=== PATIENT | female | born 1950 | race Caucasian/White ===

== ENCOUNTER 2023-05-19 12:29 | Outpatient (AMB) | payer MEDICARE, BC, SELFPAY ==
[2023-05-19 12:35] VITALS: BP 128/80; PULSE 55; O2SAT 98; BMI 25.0
--- NOTE | 2023-05-19 12:35 | A.OFFPC_ITS ---
Vital Signs 05/19/23 12:35 Height 5 ft 6 in Weight 155 lb BMI 25.0 BP 128/80 Blood Pressure Location Lt brachial Position Sitting Pulse 55 Pulse Source Pulse Oximeter Pulse Oximetry (%) 98 Oxygen Delivery Method Room Air Intake Visit Reasons: 6 month follow up Intake Note: Pt is here today for 6 months follow up. Allergies levofloxacin Allergy (Unknown, Verified 05/19/23 12:39) cramps in legs Medication List - Last Reconciled 05/19/23 by Vanesa Beasley MD albuterol sulfate 90 mcg/actuation 2 puffs PO Q6H PRN atenolol-chlorthalidone 50-25 mg 1 tab PO DAILY buspirone 15 mg PO TID clobetasol 0.05% grams topical QWEEK estradiol 0.01%(0.1mg/gram) vaginal fluticasone propionate 50 mcg/actuation 1 spray intranasal DAILY losartan 25 mg PO DAILY Tobacco use date assessed: 05/19/23 Fall risk assessment: No Falls in past year Last assessed Fall Risk: 05/19/23 Dental Screening Dental Screen Date: 05/19/23 Did you have a dental visit in the last 12 months?: Yes Did you have a dental problem in the last 6 months where you did not have access to dental care?: No Was dental information given to patient?: Patient has dentist HPI 6 month follow up HPI Details Pt presents for f/u HTN, CKD 3 and mild asthma stable on current medications. [facility] Medical History Annual physical exam Anxiety Atrophic vaginitis CKD (chronic kidney disease), stage III History of mammogram HTN (hypertension) Hyperglycemia Hyperlipidemia Osteopenia Overweight Vitamin B12 deficiency Surgical History H/O colonoscopy No pertinent past surgical history Family History Father No problems noted. Mother No problems noted. Social History Housing: House Alcohol intake: current Alcohol intake frequency: a few times a week Patient Tobacco Use Status: Former Tobacco user e-Cigarette/Vaping Use: Never Used service: No Current occupational status: retired Cognitive needs: No Hearing needs: No Vision needs: No Questionnaire Thrive Questionnaire Date Thrive assessed: 05/19/23 I am a: Patient What is your living situation today?: I have a steady place to live Within the past 12 months, did the food you bought not last and you didn't have the money to get more?: Never true Within the past 12 months, did you worry whether your food would run out before you got money to buy more?: Never true Do you have trouble paying for medicines?: No Do you have trouble getting transportation to medical appointments?: No Do you have trouble paying your heating and electricity bill?: No Do you have trouble taking care of your child, family member or friend?: No Do you have trouble with day-to-day activities such as bathing, preparing meals, shopping, managing finances, etc.?: No Are you currently unemployed and looking for a job?: No Are you interested in more education?: No Please select the resources that you would like help with: None Currently or been in a relationship where the following occur: no concerns reported AUDIT C Alcohol Use Questionnaire (AUDIT-C) 1. How often do you have a drink containing alcohol?: Monthly or less 2. How many drinks containing alcohol do you have on a typical day when you are drinking?: 1 or 2 3. How often do you have six or more drinks on one occasion?: Never Total Score: 1 MATTHEW-7 AMB Questionnaire MATTHEW-7 Date MATTHEW - 7 assessed: 05/19/23 Feeling nervous, anxious, or on edge: 0 = Not at all Not being able to stop or control worryin = Not at all Worrying too much about different things: 0 = Not at all Trouble relaxin = Not at all Being so restless that it is hard to sit still: 0 = Not at all Becoming easily annoyed or irritable: 0 = Not at all Feeling afraid as if something awful might happen: 0 = Not at all Total MATTHEW-7 score (0-4 normal; 5-9 mild; 10-14 moderate; 15-21 severe): 0 Source: Developed by Drs. Jay Tristan, Janis Inman, Samm Hayes and colleagues, with an educational jadiel from [employer]. Review of Systems Const All systems reviewed & are unremarkable except as noted in HPI and below Reports no additional complaints Eyes Reports no additional complaints ENT Reports no additional complaints Card Reports no additional complaints Resp Reports no additional complaints GI Reports no additional complaints Reports no additional complaints Physical exam (Primary Care) Vital Signs: Last Vital Signs Pulse 55 05/19/23 12:35 BP 128/80 05/19/23 12:35 Pulse Ox 98 05/19/23 12:35 Oxygen Delivery Method Room Air 05/19/23 12:35 BMI result Body Mass Index 25.0 Tobacco/Smoking Status: Tobacco use Status Tobacco use date assessed 05/19/23 05/19/23 12:42 Patient Tobacco Use Status Former Tobacco user 05/19/23 12:42 e-Cigarette/Vaping Use Never Used 05/19/23 12:36 Thrive Assessment: Date of Thrive Assessment Date Thrive assessed 05/19/23 05/19/23 12:42 Currently or been in a relationship where the following occur: no concerns reported Const General: no acute distress HENMT Head: Yes normal to inspection Face and sinus: Yes normal facial exam Throat: Yes posterior oropharynx normal Neck Neck: Yes supple Resp Effort & Inspection: normal respiratory effort Auscultation: clear to auscultation bilaterally Cardio Rhythm: regular rhythm Heart sounds: S1 normal heart sound present and S2 normal heart sound present GI Inspection: Yes normal to inspection Palpation (GI): Soft to palpation Assessment and Plan Assessment & Plan (1) Vitamin B 12 deficiency: Code(s): E53.8 - Deficiency of other specified B group vitamins Plan: Check vitamin B12 level (2) Hyperglycemia: Comment: A1C 5.8 12/02 Code(s): R73.9 - Hyperglycemia, unspecified Plan: Continue ADA diet regular exercise monitor A1c (3) Hyperlipidemia: Code(s): E78.5 - Hyperlipidemia, unspecified Plan: Continue low-cholesterol diet (4) CKD (chronic kidney disease), stage III: Comment: f/u by Dr. Rodriguez Code(s): N18.30 - Chronic kidney disease, stage 3 unspecified Plan: Continue current medications and monitor renal function (5) HTN (hypertension): Comment: BP goal < 130/80 Code(s): I10 - Essential (primary) hypertension Plan: Continue current medications Orders: Orders Vitamin B12 and Folate 6 Months E53.8 - Deficiency of other specified B group vitamins, E78.5 - Hyperlipidemia, unspecified, I10 - Essential (primary) hypertension, N18.30 - Chronic kidney disease, stage 3 unspecified, R73.9 - Hyperglycemia, unspecified Comprehensive [place]. Panel Fast 6 Months E53.8 - Deficiency of other specified B group vitamins, E78.5 - Hyperlipidemia, unspecified, I10 - Essential (primary) hypertension, N18.30 - Chronic kidney disease, stage 3 unspecified, R73.9 - Hyperglycemia, unspecified Hemoglobin A1c 6 Months E53.8 - Deficiency of other specified B group vitamins, E78.5 - Hyperlipidemia, unspecified, I10 - Essential (primary) hypertension, N18.30 - Chronic kidney disease, stage 3 unspecified, R73.9 - Hyperglycemia, unspecified Lipid Panel 6 Months E53.8 - Deficiency of other specified B group vitamins, E78.5 - Hyperlipidemia, unspecified, I10 - Essential (primary) hypertension, N18.30 - Chronic kidney disease, stage 3 unspecified, R73.9 - Hyperglycemia, unspecified Complete Blood Count Auto Diff 6 Months E53.8 - Deficiency of other specified B group vitamins, E78.5 - Hyperlipidemia, unspecified, I10 - Essential (primary) hypertension, N18.30 - Chronic kidney disease, stage 3 unspecified, R73.9 - Hyperglycemia, unspecified Coding Level of Care Code Est Pt Level 3 (72843) Diagnoses Vitamin B 12 deficiency E53.8 Hyperglycemia R73.9 Hyperlipidemia E78.5 CKD (chronic kidney disease), stage III N18.30 HTN (hypertension) I10
== END 2023-05-19 14:56 | disposition home or self-care (01) ==
PROVIDERS: PCP Internal Medicine; Visit Provider Internal Medicine
DX: I12.9 Hypertensive chronic kidney disease with stage 1 through stage 4 chronic kidney disease, or unspecified chronic kidney disease (principal); N18.30 Chronic kidney disease, stage 3 unspecified; E53.8 Deficiency of other specified B group vitamins; R73.9 Hyperglycemia, unspecified; E78.5 Hyperlipidemia, unspecified
CPT/HCPCS: 99213

== ENCOUNTER 2023-11-22 11:22 | Outpatient (AMB) | payer MEDICARE, BC, SELFPAY ==
[2023-11-22 11:44] VITALS: BP 128/80; PULSE 52; O2SAT 96; BMI 25.5
--- NOTE | 2023-11-22 11:44 | A.OFFVIS_ITS ---
Intake Vital Signs 11/22/23 11:44 Height 5 ft 6 in Weight 158 lb BMI 25.5 BP 128/80 Blood Pressure Location Lt brachial Position Sitting Pulse 52 Pulse Source Pulse Oximeter Pulse Oximetry (%) 96 Oxygen Delivery Method Room Air Intake Visit Reasons: [facility] G0439 Allergies levofloxacin Allergy (Unknown, Verified 11/22/23 11:54) cramps in legs Medication List - Last Reconciled 11/22/23 by Vanesa Beasley MD albuterol sulfate 90 mcg/actuation 2 puffs PO Q6H PRN atenolol-chlorthalidone 50-25 mg 1 tab PO DAILY buspirone 15 mg PO TID clobetasol 0.05% grams topical QWEEK estradiol 0.01%(0.1mg/gram) vaginal fluticasone propionate 50 mcg/actuation 1 spray intranasal DAILY losartan 25 mg PO DAILY HPI [facility] G0439 HPI Details Pt presents for annual.Initiated the conversation about Advanced Directives. Advanced Directives help? patients prepare for current and future decisions about their medical treatment? and place of care. Discussed with patient that it is a process where a patients? current condition and prognosis are reviewed, their wishes for information? regarding their illness are elicited, and likely medical dilemmas are presented? and options discussed. The form can be amended as needed, reviewed yearly and? make changes as needed IPPE/AWV ? year old presents? for her ? Annual? Wellness Visit, initial visit.? Medical / Social History Reviewed? Past Medical History ?Yes? . ? [place]? of Care / Care Team list updated ?Yes . ? Surgical/Hospitalization? History ?Yes . ? Current Medications? (including OTC and supplements) ?Yes . ? Family History ?Yes? . ? Tobacco? Control form ?Yes . ? AUDIT-C (Alcohol use) form? ?Yes . ? Illicit drug use in Social? History ?Yes . ? Current diagnosis of? depression? ?No ? Appropriate PHQ2/PHQ9? completed ?Yes . ? Data entered by ?Medical? Linen Clerk and reviewed by provider ? Fall Risk ? Fall? History? Have you had any falls with? injury in the past year? ?No . ? Have you had two or more? falls in the past year? ?No . ? Fall Risk Assessment: ?No? falls in the past year . ? HRA filled out by? the patient, reviewed by Provider and scanned. ? IPPE/AWV ? Balance? [place]? ?Yes . ? Tandem? walk ?Yes . ? Walk and? Turn ?Yes . ? Rise from? sit to stand ?Yes . ?Vision? Corrective? lens ?Yes ? Vision? screen ? Up-to-date, has an appointment [] for vision? screening and glaucoma screening ?Hearing? Whisper? test ?pass .? Initiated the conversation about Advanced Directives. Advanced Directives help? patients prepare for current and future decisions about their medical treatment? and place of care. Discussed with patient that it is a process where a patients? current condition and prognosis are reviewed, their wishes for information? regarding their illness are elicited, and likely medical dilemmas are presented? and options discussed. The form can be amended as needed, reviewed yearly and? make changes as needed Written? Plan?Completed. See Patient? Documents. [facility] Medical History Annual physical exam Anxiety Atrophic vaginitis CKD (chronic kidney disease), stage III History of mammogram HTN (hypertension) Hyperglycemia Hyperlipidemia Osteopenia Overweight Vitamin B12 deficiency Surgical History H/O colonoscopy No pertinent past surgical history Family History Father No problems noted. Mother No problems noted. Social History Housing: House Alcohol intake: current Alcohol intake frequency: a few times a week Patient Tobacco Use Status: Former Tobacco user e-Cigarette/Vaping Use: Never Used service: No Current occupational status: retired Cognitive needs: No Hearing needs: No Vision needs: No Questionnaire Medicare Wellness Checkup [age] What gender do you identify with?: female During the past 4 weeks, how much have you been bothered by emotional problems such as feeling anxious, depressed, irritable, sad or downhearted, and blue?: slightly During the past 4 weeks, has your physical & emotional health limited your social activities with family, friends, neighbors, or groups?: not at all During the past 4 weeks, how much bodily pain have you generally had?: mild pain During the past 4 weeks, was someone available to help you if you needed & wanted help?: yes, as much as I wanted During the past 4 weeks, what was the hardest physical activity you could do for at least 2 minutes?: heavy Can you get to places out of walking distance without help? (For eg., can you travel alone on buses, taxis or drive your car?): Yes Can you go shopping for groceries or clothes without someone's help?: Yes Can you prepare your own meals?: Yes Can you do your housework without help?: Yes Because of any health problems, do you need the help of another person with your personal care needs such as eating, bathing, dressing or getting around the house?: No Can you handle your own money without help?: Yes During the past 4 weeks, how would you rate your health in general?: very good During the past 4 weeks how have things been going for you?: very well; could hardly better Are you having difficulties driving your car?: no Do you always fasten your seat belt when you are in a car?: yes, usually During past 4 weeks, have you been bothered by the following: never: Falling or dizzy when standing up, Sexual problems?, Trouble eating well?, Teeth or denture problems?, Problems using the telephone? and Tiredness or fatigue? Have you fallen 2 or more times in the past year?: Yes Are you afraid of falling?: Yes Are you a smoker?: no During the past 4 weeks, how many drinks of wine, beer, or other alcoholic beverages did you have?: 2-5 drinks per week Do you exercise for about 20 minutes 3 or more times a week?: yes, some of the time Have you been given information to help with the following?: no: Hazards in your house that might hurt you? and no: Keeping track of your medications? How often do you have trouble taking medicines the way you have been told to take them?: I always take medicine as prescribed How confident are you that you can control & manage most of your health problems?: very confident What is your race?: White Mini Mental State Exam (MMSE) Orientation What is the (year) (season) (date) (day) (month)?: year, season, date, day and month Where are we (state) (county) (town or city) (hospital) (floor)?: state, county, town or city, hospital/clinic and floor Registration Name of 3 unrelated objects clearly and slowly, then ask patient to repeat all 3 of them. (1st repeat determines score. Make sure they can repeat all three): object 1, object 2 and object 3 Attention & Calculation (CHOOSE ONE) Spell WORLD backwards (DLROW): 5 letters Recall Ask patient to repeat the 3 items from question #3.: object 1, object 2 and object 3 Language Show patient a wristwatch & ask what it is. Repeat for pencil.: watch and pencil Ask the patient to repeat the phrase 'No ifs, ands, or buts' after you.: correct Ask the patient to 'take a piece of paper with their right hand' 'fold paper in half' 'place paper on floor': take paper in right hand, fold paper in half and place paper on floor Print the sentence 'CLOSE YOUR EYES' on a piece. If patient actually closes eyes then score.: followed written direction Give patient a blank piece of paper & ask to write a sentence. Score if it contains a noun & verb.: sentence contains subject and verb Score Score: 29 Activity of Daily Living Bathing - sponge bath, tub bath or shower: receives no assistance (gets in/out by self, if usual bathing means Dressing - getting clothes from closets & drawers, including inner/outer garments & fasteners.: gets clothes & gets completely dressed without help Toileting - going to the 'toilet room' for urine/bowel elimination & cleaning self/arranging clothes: goes to toilet room, cleans self, arranges clothes without help Transfer: moves in & out of bed and chair without help (may use support object) Continence: controls urination/bowel movements completely by self Feeding: feeds self without help Total Score: 0 Information obtained from: patient Using telephone: independent Traveling: independent Shopping: independent Preparing meals: independent Housework: independent Taking medicine: independent Managing money: independent PHQ-9 Over the last 2 weeks, how often have you been bothered by any of the following problems? 1. Little interest or pleasure in doing things: not at all 2. Feeling down, depressed, or hopeless: not at all 3. Trouble falling or staying asleep, or sleeping too much: not at all 4. Feeling tired or having little energy: not at all 5. Poor appetite or overeating: not at all 6. Feeling bad about yourself - or that you are a failure or have let yourself or your family down: not at all 7. Trouble concentrating on things, such as reading the newspaper or watching television: not at all 8. Moving or speaking so slowly that other people could have noticed. Or the opposite - being so fidgety or restless that you have been moving around a lot more than usual: not at all 9. Thoughts that you would be better off or of hurting yourself in some way: not at all Total score: 0 Depression Screening Interpretation: Negative Depression Screening Done: Yes Source: Developed by Drs. Jay Tristan, Janis Inman, Samm Hayes and colleagues, with an educational jadiel from [employer]. Review of Systems Const All systems reviewed & are unremarkable except as noted in HPI and below Reports no additional complaints Eyes Reports no additional complaints ENT Reports no additional complaints Card Reports no additional complaints Resp Reports no additional complaints GI Reports no additional complaints Reports no additional complaints Musc Reports no additional complaints Physical Exam Vital Signs: Last Vital Signs Pulse 52 11/22/23 11:44 BP 128/80 11/22/23 11:44 Pulse Ox 96 11/22/23 11:44 Oxygen Delivery Method Room Air 11/22/23 11:44 BMI result Body Mass Index 25.5 Const General: no acute distress HEENT Head: Yes normal to inspection Eyes General: appearance normal, both eyes and all related structures Neck Neck: Yes no lymphadenopathy and Yes supple Resp Effort & Inspection: normal respiratory effort Auscultation: clear to auscultation bilaterally Cardio Rhythm: regular rhythm Heart sounds: S1 normal heart sound present and S2 normal heart sound present GI Inspection: Yes normal to inspection Palpation (GI): Soft to palpation Percussion: Yes normal to percussion Auscultation: normal bowel sounds Extrem General: Yes no clubbing, cyanosis or edema Assessment & Plan Assessment & Plan (1) Hyperglycemia: Comment: A1C 5.8 12/02 Code(s): R73.9 - Hyperglycemia, unspecified Plan: A1c is 5.6, continue ADA diet regular exercise (2) Hyperlipidemia: Code(s): E78.5 - Hyperlipidemia, unspecified Plan: Continue low-cholesterol diet (3) CKD (chronic kidney disease), stage III: Comment: f/u by Dr. Rodriguez Code(s): N18.30 - Chronic kidney disease, stage 3 unspecified Plan: Monitor renal function avoid nephrotoxins follow-up with hand stonecutter in 6 months (4) HTN (hypertension): Comment: BP goal < 130/80 Code(s): I10 - Essential (primary) hypertension Plan: Continue current medications (5) Vitamin B 12 deficiency: Code(s): E53.8 - Deficiency of other specified B group vitamins Plan: Continue vitamin B12 supplement Orders: Orders Complete Blood Count Auto Diff 365 Days E53.8 - Deficiency of other specified B group vitamins, E78.5 - Hyperlipidemia, unspecified, I10 - Essential (primary) hypertension, N18.30 - Chronic kidney disease, stage 3 unspecified, R73.9 - Hyperglycemia, unspecified Hemoglobin A1c 365 Days E53.8 - Deficiency of other specified B group vitamins, E78.5 - Hyperlipidemia, unspecified, I10 - Essential (primary) hypertension, N18 .30 - Chronic kidney disease, stage 3 unspecified, R73.9 - Hyperglycemia, unspecified Microalbumin, Random (w Creat) 365 Days E53.8 - Deficiency of other specified B group vitamins, E78.5 - Hyperlipidemia, unspecified, I10 - Essential (primary) hypertension, N18.30 - Chronic kidney disease, stage 3 unspecified, R73.9 - Hyperglycemia, unspecified Comprehensive [place]. Panel Fast 365 Days E53.8 - Deficiency of other specified B group vitamins, E78.5 - Hyperlipidemia, unspecified, I10 - Essential (primary) hypertension, N18.30 - Chronic kidney disease, stage 3 unspecified, R73.9 - Hyperglycemia, unspecified Lipid Panel 365 Days E53.8 - Deficiency of other specified B group vitamins, E78.5 - Hyperlipidemia, unspecified, I10 - Essential (primary) hypertension, N18.30 - Chronic kidney disease, stage 3 unspecified, R73.9 - Hyperglycemia, unspecified Quality Reporting (2019) Depression/Bipolar (159/160/161/177) PHQ-9: Total score: 0 Coding Level of Care Code Medicare Subsequent (G0439) Diagnoses Hyperglycemia R73.9 Hyperlipidemia E78.5 CKD (chronic kidney disease), stage III N18.30 HTN (hypertension) I10 Vitamin B 12 deficiency E53.8 CPT Codes Advance Care Planning - Time spent: 1-15 minutes, not on file ([id number]) Advance Care Planning Advance Care Planning discussion: Exists, not on file Forms completed: Health Care Proxy Time spent: 1-15 minutes, not on file
== END 2023-11-22 13:55 | disposition home or self-care (01) ==
PROVIDERS: PCP Internal Medicine; Visit Provider Internal Medicine
DX: Z00.00 Encounter for general adult medical examination without abnormal findings (principal); I12.9 Hypertensive chronic kidney disease with stage 1 through stage 4 chronic kidney disease, or unspecified chronic kidney disease; N18.30 Chronic kidney disease, stage 3 unspecified; R73.9 Hyperglycemia, unspecified; E78.5 Hyperlipidemia, unspecified; E53.8 Deficiency of other specified B group vitamins
CPT/HCPCS: 1124F; G0439

== ENCOUNTER 2024-11-23 11:57 | Outpatient (AMB) | payer MEDICARE, BC, SELFPAY ==
[2024-11-23 12:11] VITALS: BP 158/90; PULSE 73; RESP 16; O2SAT 97; BMI 24.6
--- NOTE | 2024-11-23 12:11 | A.OFFPC_ITS ---
Vital Signs 11/23/24 12:11 Height 5 ft 6 in Weight 152 lb 4 oz BMI 24.6 BP 158/90 H Blood Pressure Location Rt brachial Position Sitting Respiration 16 Pulse 73 Pulse Source Pulse Oximeter Pulse Oximetry (%) 97 Oxygen Delivery Method Room Air Intake Visit Reasons: [facility] G0439 Allergies levofloxacin Allergy (Unknown, Verified 11/23/24 12:14) cramps in legs Medication List - Last Reconciled 11/23/24 by Vanesa Beasley MD albuterol sulfate 90 mcg/actuation 2 puffs PO Q6H PRN atenolol-chlorthalidone 50-25 mg 1 tab PO DAILY buspirone 1 1/2 tabl orally 2 times a day; clobetasol 0.05% grams topical QWEEK estradiol 0.01%(0.1mg/gram) vaginal fluticasone propionate 50 mcg/actuation 1 spray intranasal DAILY losartan 25 mg PO DAILY Tobacco use date assessed: 11/23/24 Fall risk assessment: No Falls in past year Last assessed Fall Risk: 11/23/24 Dental Screening Dental Screen Date: 11/23/24 Did you have a dental visit in the last 12 months?: Yes Did you have a dental problem in the last 6 months where you did not have access to dental care?: No Was dental information given to patient?: Patient has dentist HPI [facility] G0439 HPI Details Initiated the conversation about Advanced Directives. Advanced Directives help? patients prepare for current and future decisions about their medical treatment? and place of care. Discussed with patient that it is a process where a patients? current condition and prognosis are reviewed, their wishes for information? regarding their illness are elicited, and likely medical dilemmas are presented? and options discussed. The form can be amended as needed, reviewed yearly and? make changes as needed IPPE/AWV ? year old presents? for her ? Annual? Wellness Visit, initial visit.? Medical / Social History Reviewed? Past Medical History ?Yes? . ? [place]? of Care / Care Team list updated ?Yes . ? Surgical/Hospitalization? History ?Yes . ? Current Medications? (including OTC and supplements) ?Yes . ? Family History ?Yes? . ? Tobacco? Control form ?Yes . ? AUDIT-C (Alcohol use) form? ?Yes . ? Illicit drug use in Social? History ?Yes . ? Current diagnosis of? depression? ?No ? Appropriate PHQ2/PHQ9? completed ?Yes . ? Data entered by ?Medical? [employer] and reviewed by provider ? Fall Risk ? Fall? History? Have you had any falls with? injury in the past year? ?No . ? Have you had two or more? falls in the past year? ?No . ? Fall Risk Assessment: ?No? falls in the past year . ? HRA filled out by? the patient, reviewed by Provider and scanned. ? IPPE/AWV ? Balance? [place]? ?Yes . ? Tandem? walk ?Yes . ? Walk and? Turn ?Yes . ? Rise from? sit to stand ?Yes . ?Vision? Corrective? lens ?Yes ? Vision? screen ? Up-to-date, has an appointment [] for vision? screening and glaucoma screening ?Hearing? Whisper? test ?pass .? Initiated the conversation about Advanced Directives. Advanced Directives help? patients prepare for current and future decisions about their medical treatment? and place of care. Discussed with patient that it is a process where a patients? current condition and prognosis are reviewed, their wishes for information? regarding their illness are elicited, and likely medical dilemmas are presented? and options discussed. The form can be amended as needed, reviewed yearly and? make changes as needed Written? Plan?Completed. See Patient? Documents. [facility] Medical History (Updated 11/23/24 @ 15:19 by Vanesa Beasley MD) Anxiety Annual physical exam Osteopenia Vitamin B12 deficiency Hyperglycemia Hyperlipidemia History of mammogram CKD (chronic kidney disease), stage III Atrophic vaginitis Overweight HTN (hypertension) Surgical History H/O colonoscopy No pertinent past surgical history Family History Father No problems noted. Mother No problems noted. Social History Household Members Other:: , taking care of her ill , in wheelchair Housing: House Alcohol intake: current Alcohol intake frequency: a few times a week Patient Tobacco Use Status: Former Tobacco user e-Cigarette/Vaping Use: Never Used service: No Current occupational status: retired Cognitive needs: No Hearing needs: No Vision needs: No Questionnaire PHQ-9 Over the last 2 weeks, how often have you been bothered by any of the following problems? 1. Little interest or pleasure in doing things: not at all 2. Feeling down, depressed, or hopeless: several days 3. Trouble falling or staying asleep, or sleeping too much: not at all 4. Feeling tired or having little energy: not at all 5. Poor appetite or overeating: not at all 6. Feeling bad about yourself - or that you are a failure or have let yourself or your family down: not at all 7. Trouble concentrating on things, such as reading the newspaper or watching television: not at all 8. Moving or speaking so slowly that other people could have noticed. Or the opposite - being so fidgety or restless that you have been moving around a lot more than usual: not at all 9. Thoughts that you would be better off or of hurting yourself in some way: not at all Total score: 1 Depression Screening Interpretation: Negative Depression Screening Done: Yes 73862 - PHQ-9 Billing: Yes Source: Developed by Drs. Jay Tristan, Janis Inman, Samm Hayes and colleagues, with an educational jadiel from [employer]. Thrive Questionnaire Date Thrive assessed: 11/23/24 I am a: Patient What is your living situation today?: I have a steady place to live Within the past 12 months, did the food you bought not last and you didn't have the money to get more?: Never true Within the past 12 months, did you worry whether your food would run out before you got money to buy more?: Never true Do you have trouble paying for medicines?: No Do you have trouble getting transportation to medical appointments?: No Do you have trouble paying your heating and electricity bill?: No Do you have trouble taking care of your child, family member or friend?: No Do you have trouble with day-to-day activities such as bathing, preparing meals, shopping, managing finances, etc.?: No Are you currently unemployed and looking for a job?: Yes Are you interested in more education?: No Please select the resources that you would like help with: None Currently or been in a relationship where the following occur: No concerns r eported THRIVE Score: 0 AUDIT C Alcohol Use Questionnaire (AUDIT-C) 1. How often do you have a drink containing alcohol?: 2-3 times a week 2. How many drinks containing alcohol do you have on a typical day when you are drinking?: 1 or 2 3. How often do you have six or more drinks on one occasion?: Never Total Score: 3 Score Reviewed/Action Taken: Yes MATTHEW-7 AMB Questionnaire MATTHEW-7 Date MATTHEW - 7 assessed: 11/23/24 Feeling nervous, anxious, or on edge: 1 = Several days Not being able to stop or control worryin = Several days Worrying too much about different things: 1 = Several days Trouble relaxin = Several days Being so restless that it is hard to sit still: 1 = Several days Becoming easily annoyed or irritable: 0 = Not at all Feeling afraid as if something awful might happen: 1 = Several days Total MATTHEW-7 score (0-4 normal; 5-9 mild; 10-14 moderate; 15-21 severe): 6 Source: Developed by Drs. Jay Tristan, Janis Inman, Samm Hayes and colleagues, with an educational jadiel from [employer]. MATTHEW-7 Assessment Billing MATTHEW-7 Assessment Tool: MATTHEW-7 Assessment 50522 Review of Systems Const All systems reviewed & are unremarkable except as noted in HPI and below Reports no additional complaints Eyes Reports no additional complaints ENT Reports no additional complaints Card Reports no additional complaints Resp Reports no additional complaints GI Reports no additional complaints Reports no additional complaints Physical exam (Primary Care) Vital Signs: Last Vital Signs Pulse 73 11/23/24 12:11 Resp 16 11/23/24 12:11 BP 158/90 H 11/23/24 12:11 Pulse Ox 97 11/23/24 12:11 Oxygen Delivery Method Room Air 11/23/24 12:11 BMI result Body Mass Index 24.6 Tobacco/Smoking Status: Tobacco use Status Tobacco use date assessed 11/23/24 11/23/24 12:15 Patient Tobacco Use Status Former Tobacco user 11/23/24 12:50 e-Cigarette/Vaping Use Never Used 11/23/24 12:50 PHQ-9: PHQ-9 Score PHQ-9: Total score 1 11/23/24 15:19 Depression Screening Interpretation: Negative Thrive Assessment: Date of Thrive Assessment Date Thrive assessed 11/23/24 11/23/24 12:15 Currently or been in a relationship where the following occur: No concerns reported Const General: no acute distress HENMT Head: Yes normal to inspection General nose exam: Normal external nose present Face and sinus: Yes normal facial exam Mouth: Normal oral and palatal mucosa present Throat: Yes posterior oropharynx normal Eyes General: appearance normal, both eyes and all related structures Neck Neck: Yes no lymphadenopathy and Yes supple Resp Effort & Inspection: normal respiratory effort Auscultation: clear to auscultation bilaterally Cardio Rhythm: regular rhythm Heart sounds: S1 normal heart sound present and S2 normal heart sound present GI Inspection: Yes normal to inspection Palpation (GI): Soft to palpation Percussion: Yes normal to percussion Auscultation: normal bowel sounds Coding Diagnoses HTN (hypertension) I10 Annual physical exam Z00.00 CKD (chronic kidney disease), stage III N18.30 Anxiety F41.9 Additional Codes MATTHEW-7 Assessment Billing - MATTHEW-7 Assessment Tool: MATTHEW-7 Assessment 34220 ([id number]) PHQ-9 - 17132 - PHQ-9 Billing: Yes ([id number]) Assessment & Plan Assessment & Plan (1) HTN (hypertension): Comment: BP goal < 130/80 Code(s): I10 - Essential (primary) hypertension Category: Medical Plan: Blood pressure is elevated and losartan will be increased to 25 mg twice a day. Patient will continue atenolol with chlorthalidone, have basic metabolic panel checked in 1 week and will follow-up in 1 month (2) Annual physical exam: Code(s): Z00.00 - Encounter for general adult medical examination without abnormal findings Category: Medical Plan: Well-balanced diet regular physical activity discussed with the patient she is up-to-date with mammogram DEXA and colonoscopy (3) CKD (chronic kidney disease), stage III: Comment: f/u by Dr. 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 Patient will follow-up in 1 month Orders: Orders Basic Metabolic Panel 1 Week I10 - Essential (primary) hypertension Medications: Changed From losartan 25 mg PO DAILY 180 tabs 3RF To losartan 25 mg PO BID 180 tabs 3RF From buspirone 15 mg PO TID 270 tabs 3RF To buspirone 1 1/2 tabl orally 2 times a day; 270 tabs 3RF Refilled losartan 25 mg PO DAILY 180 tabs 3RF
--- OUTSIDE RECORDS SUMMARY | 2024-11-23 12:21 | XMS_ITS ---
Author Organization [employer] [facility] Address [address] [facility] [place] [address] Care Team Providers Care Demand Inspector Name Role Phone Vanesa Beasley MD Primary Care Provider Usha Gamboa Unavailable [phone] Allergies Allergen (clinical drug ingredient) Drug/Non Drug Allergy documented on EMR Reaction Allergy Type Onset Date Status citalopram Citalopram Hydrobromide Leg Cramps Drug Allergy Active REASON FOR VISIT LR MEDICARE PE, Annual COOK SHIP Physical 60-85+ Medications Medication SIG (Take, Route, Frequency, Duration) Notes Start Date End Date Status Clobetasol Propionate 0.05 % APPLY TO AFFECTED AREA ONCE A WEEK TOPICALLY for 90 PLS ADVISE PAT TO APPLY TWICE A WEEK IF LESIONS HAVE WORSENED. THANK YOU. Active Estradiol 0.1 MG/GM APPLY 1 GRAM VAGINALLY 2 TIMES PER WEEK for 90 Active Atenolol-Chlorthalidon e 50-25 MG TAKE 1 TABLET BY MOUTH EVERY DAY Oral for 90 Active busPIRone HCl 15 MG 1 tablet Orally Once a day Active Losartan Potassium 25 MG TAKE 1 TABLET BY MOUTH EVERY DAY Oral for 90 Active Peggy Seasonal Active Albuterol Sulfate HFA 108 (90 Base) MCG/ACT INHALE 2 PUFFS BY MOUTH EVERY 6 HOURS NEEDED Inhalation for 16 Active Estradiol Vaginal Cream 0.01% 1 Gram to the affected area Vaginal/Vulva Twice a week for 90 Days 10/26/2022 Active Multivitamins 1 ORAL daily for -3 Darci-MJ 05/12/2012 Active Calcium ORAL for -3 Darci-MJ 08/07/2011 Active Aspirin EC 81MG 1 ORAL daily for -3 Darci-MJ 08/07/2011 Active Social History Tobacco Use: Social History Observation Description Date Details (start date - stop date) Never Smoker NA - NA Tobacco Use/Smoking Question Answer Notes Are you a nonsmoker Alcohol Screen (Audit-C) Question Answer Notes Did you have a drink contain ing alcohol in the past year? Yes How often did you have a dri nk containing alcohol in the past year? 4 or more times a week (4 points) How many drinks did you have on a typical day when you were drinking in the past year? 1 or 2 drinks (0 point) Points 4 Interpretation Positive Sexual History Question Answer Notes Had sex in the past 12 months (vaginal, oral, or anal)? Yes with Men only Prevention strategies discussed: Other Vital Signs Temperature 96.8 degrees Fahrenheit 12/14/19 24 Blood pressure systolic 140 mm Hg 12/14/19 24 Blood pressure diastolic 88 mm Hg 024 Height 64 in 12/14/2023 Weight 158 lbs 12/14/2023 BMI 27.12 kg/m2 12/14/2023 Encounters Encounter Location Date Provider Diagnosis [address] [address] 12/14/2023 Usha Alexandra Encounter for gynecological examination (general) (routine) without abnormal findings Z01.419 ; Encounter for screening mammogram for malignant neoplasm of breast Z12.31 ; Other specified disorders of bone density and structure, multiple sites M85.89 ; Lichen sclerosus et atrophicus L90.0 ; Atrophy of vulva N90.5 and Postmenopausal atrophic vaginitis N95.2 Assessments Encounter Date Diagnosis (ICD Code) Assessment Notes Treatment Notes Treatment Clinical Notes Section Notes 12/14/2023 Encounter for gynecological examination (general) (routine) without abnormal findings (ICD-10 - Z01.419) NO MORE PAP TESTS. 12/14/2023 Encounter for screening mammogram for malignant neoplasm of breast (ICD-10 - Z12.31) REGULAR MAMMOGRAMS AND SBE'S WERE RECOMMENDED. 12/14/2023 Other specified disorders of bone density and structure, multiple sites (ICD-10 - M85.89) DISCUSSED HER LAST BMD AND OSTEOPENIA AND ITS IMPACT ON HER HEALTH. ADEQUATE CALCIUM AND VIT D. WEIGHT BEARING EXERCISES. REPEAT BONE DENSITY WAS ORDERED. 12/14/2023 Lichen sclerosus et atrophicus (ICD-10 - L90.0) DISCUSSED FINDINGS AND CONGRATULATED PAT FOR HER DILIGENCE. CONTINUE ONCE WEEKLY APPLICATION OF MEDICATION. 12/14/2023 Atrophy of vulva (ICD-10 - N90.5) CONTINUE APPLYING ESTRADIOL CREAM ALONG VULVA. CALL FOR REFILLS. 12/14/2023 Postmenopausal atrophic vaginitis (ICD-10 - N95.2) CONTINUE APPLYING ESTRADIOL CREAM INTRAVAGINALLY. CALL FOR REFILLS. Plan Of Treatment Treatment Notes Assessment Notes Encounter for gynecological examination (general) (routine) without abnormal findings NO MORE PAP TESTS. Encounter for screening mamm ogram for malignant neoplasm of breast REGULAR MAMMOGRAMS AND SBE'S WERE RECOMMENDED. Other specified disorders of bone density and structure, multiple sites DISCUSSED HER LAST BMD AND OSTEOPENIA AND ITS IMPACT ON HER HEALTH. ADEQUATE CALCIUM AND VIT D. WEIGHT BEARING EXERCISES. REPEAT BONE DENSITY WAS ORDERED. Lichen sclerosus et atrophicus DISCUSSED FINDINGS AND CONGRATULATED PAT FOR HER DILIGENCE. CONTINUE ONCE WEEKLY APPLICATION OF MEDICATION. Atrophy of vulva CONTINUE APPLYING ESTRADIOL CREAM ALONG VULVA. CALL FOR REFILLS. Postmenopausal atrophic vaginitis CONTINUE APPLYING ESTRADIOL CREAM INTRAVAGINALLY. CALL FOR REFILLS. Pending Test Test Name Order Date MAMMOGRAM, SCREENING 12/14/2023 BONE DENSITY 12/14/2023 MM Digital Mammo Screening 12/14/2023 Next Appt Details Follow Up: 1 Year, Reason: Provider Name:Usha pastor, 12/20/2024 11:00:00 AM, [address] [place] [address], [facility] [address], [place], [address], Progress Notes * IZZY OBREGONOB:1950 (73 yo F)Acc No.[id number]:12/14/2023 PROGRESS NOTES Patient:?CESIA OBREGONRA Appointment Provider:?Usha pastor M.D. :1950???Age:73 Y???Sex:Female D ate:12/14/2023 Address:[address] [place], [place] [id number] Pcp:Vanesa Beasley MD Subjective: * Chief Complaints: * ???LR MEDICARE PEAnnual COOK SHIP Physical 60-85+ * HPI: ???New/Follow-up Patient Consult:? PAT ENTERED MENOPAUSE IN 2000. SHE USES ESTRADIOL CREAM FOR ATROPHIC VAGINITIS AND ATROPHIC VULVA. ?VULVAR BIOPSY DONE IN 2018 SHOWED LICHEN SCLEROSUS. SHE RESPONDED WELL TO CLOBETASOL 0.05% OINTMENT AND IS ON A MAINTENANCE DOSE, ONCE WEEKLY APPLICATION. ?HER LAST MAMMOGRAM DONE IN NOV 2023 SHOWED BREASTS ARE NOT DENSE AND WAS NORMAL. ?HER LAST PAP TEST IN 2018 WAS NEGATIVE AND HPV NEGATIVE. SHE HAS NO HX OF ABNORMAL PAP TESTS. ?HER LAST BMD IN 2021 SHOWED THE LOWEST T-SCORE TO BE -1.9 AT THE FEMORAL NECK. FRAX=12%/2.5%. ?SHE HAD A COLONOSCOPY DONE IN 2018. ?MODERNA X 4. ???Annual:? Patient presents for annual exam, ages 60-85, postmenopausal. ?General Health Maintenance:?Current breast complaints:?no breast pain, mass, discharge, or skin changes ?Urinary problems:?patient reports no urinary health problems or bowel health problems ?Calcium intake:?takes adequate calcium via diet and supplementation ?Significant COOK SHIP problems:?no significant nut culler symptoms or problems * ROS:?general:?no?chest pain.?no?palpitations.?no?headache.?no?cough.?no?shortness of breath.?no?fever.?no?unexplained weight loss.?no?nausea/vomiting.?no?change in bowel movements.?no blood in stool.?no?genitourinary complaints.?no?skin complaints.? * Medical History:? * Clinic Supervisor History:?/ Para?2/2.?Sexual activity?currently sexually active.?Last Pap Smear:?07/10/19 NIL, NEG HRHPV, 05/12/13, neg.?Mammogram:?11/18/23 < 50% density, 08/04/22 < 50% density, 04/04/21 < 50% density, 11/21/19 < 50% density, 2018, 01/11/17 < 50% density, 09/12/15 < 50% density, 07/13/14, < 50% density.?LMP and menses?[place].? Control:?None.?Colonoscopy?2019.?Bone Density:?08/04/22, 07/31/19, 09/12/15 with PCP, 04/20/12.? * OB History:?Total pregnancies?2.?Total living children?2.?NVD?2.? * Surgical History:?Tonsillect reece Umbilical Hernia Colonoscopy Vulvar Biopsy - Lichen Sclerosus 07/11/19 * Hospitalization/Major Diagno stic Procedure:?2 Vaginal Deliveries See Surgical Hx * Family History:?Mother: dece ased 80 yrs, diagnosed with Unspecified cerebral artery occlusion with cerebral infarction.?Father: 83 yrs, Coronary Artery Disease.? * Social History:?Tobacco Use:?Tobacco Use/Smoking?Are you a?nonsmoker ???Sexual History:?Sexual History?Had sex in the past 12 months (vaginal, oral, or anal)??Yes ?with?Men only ?Prevention strategies discussed:?Other ?Details of Sexual History?Are you sexually active??Yes ???Drugs/Alcohol:?Drugs?Have you used drugs other than those for medical reasons in the past 12 months??No ?Alcohol Screen (Audit-C)?Did you have a drink containing alcohol in the past year??Yes ?How often did you have a drink containing alcohol in the past year??4 or more times a week (4 points) ?How many drinks did you have on a typical day when you were drinking in the past year??1 or 2 drinks (0 point) ?Points?4 ?Interpretation?Positive ???Miscellaneous:?Children: yes, 2. ?no Domestic violence. ?Exercise: yes, walking. ?Home smoke detector use: yes. ?Living with: spouse. ?Marital status: . ?Natural support system: yes. 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 ?no Sexual abuse. ?Sexually active: yes, monogamous relationship. ?no Verbal abuse. * Medications:?TakingbusPIRone HCl 15 MG Tablet 1 tablet Orally Once a dayAtenolol-Chlorthalidone 50-25 MG Tablet TAKE 1 TABLET BY MOUTH EVERY DAY Oral Losartan Potassium 25 MG Tablet TAKE 1 TABLET BY MOUTH EVERY DAY Oral Aspirin EC 81MG 30 1 ORAL daily, Notes: Darci-MJCalcium ORAL , Notes: Darci-MJMultivitamins 30 1 ORAL daily, Notes: Darci-MJAlbuterol Sulfate HFA 108 (90 Base) MCG/ACT Aerosol Solution INHALE 2 PUFFS BY MOUTH EVERY 6 HOURS NEEDED Inhalation Peggy , Notes: SeasonalEstradiol Vaginal Cream 0.01% Cream 1 Gram to the affected area Vaginal/Vulva Twice a weekClobetasol Propionate 0.05 % Ointment APPLY TO AFFECTED AREA ONCE A WEEK TOPICALLY , Notes: PLS ADVISE PAT TO APPLY TWICE A WEEK IF LESIONS HAVE WORSENED. THANK YOU.Estradiol 0.1 MG/GM Cream APPLY 1 GRAM VAGINALLY 2 TIMES PER WEEK Medication List reviewed and reconciled with the patientTaking busPIRone HCl 15 MG Tablet 1 tablet Orally Once a dayTaking Atenolol-Chlorthalidone 50-25 MG Tablet TAKE 1 TABLET BY MOUTH EVERY DAY Oral Taking Losartan Potassium 25 MG Tablet TAKE 1 TABLET BY MOUTH EVERY DAY Oral Taking Aspirin EC 81MG 30 1 ORAL daily, Notes: Darci- MJTaking Calcium ORAL , Notes: Darci-MJTaking Multivitamins 30 1 ORAL daily, Notes: Darci- MJTaking Albuterol Sulfate HFA 108 (90 Base) MCG/ACT Aerosol Solution INHALE 2 PUFFS BY MOUTH EVERY 6 HOURS NEEDED Inhalation Taking Peggy , Notes: SeasonalTaking Estradiol Vaginal Cream 0.01% Cream 1 Gram to the affected area Vaginal/Vulva Twice a weekTaking Clobetasol Propionate 0.05 % Ointment APPLY TO AFFECTED AREA ONCE A WEEK TOPICALLY , Notes: PLS ADVISE PAT TO APPLY TWICE A WEEK IF LESIONS HAVE WORSENED. THANK YOU.Taking Estradiol 0.1 MG/GM Cream APPLY 1 GRAM VAGINALLY 2 TIMES PER WEEK Medication List reviewed and reconciled with the patient * Allergies:?Citalopram Hydrob romide: Leg Cramps - Allergyno[Allergies Verified] Objective: * Vitals:?Ht: 64 in, Wt: 158 l bs, BMI:27.12 Index, BP: 140/88 mm Hg, Temp: 96.8 F. * Examination: ???General Exam: ?CONSTITUTIONAL:?NECK/THYROID:?RESPIRATORY:?Auscultation: clear to auscultation bilaterally, Respiratory Effort: normal.?CARDIOVASCULAR:?Auscultation: regular rate and rhythm.?BREAST, Right:?BREAST, Left:?GASTROINTESTINAL:?MUSCULOSKELETAL:?SKIN:?NEURO/PSYCH:?Genitourinary: ?EXTERNAL GENITALIA:?VAGINA:?BLADDER:?URETHRA:?CERVIX:?UTERUS:?ADNEXA:?ANUS AND PERINEUM:? Assessment: * Assessment: 1.?Encounter for gynecologic al examination (general) (routine) without abnormal findings - Z01.419?2.?Encounter for screening mammogram for malignant neoplasm of breast - Z12.31?3.?Other specified disorders of bone density and structure, multiple sites - M85.89?4.?Lichen sclerosus et atrophicus - L90.0?5.?Atrophy of vulva - N90.5?6.?Postmenopausal atrophic vaginitis - N95.2? Plan: * Treatment: 2.?Encounter for screening m ammogram for malignant neoplasm of breast?Imaging: MM Digital Mammo Screening Notes: REGULAR MAMMOGRAMS AND SBE'S WERE RECOMMENDED.?? 3.?Other specified disorders of bone density and structure, multiple sites?Imaging: BONE DENSITY Notes: DISCUSSED HER LAST BMD AND OSTEOPENIA AND ITS IMPACT ON HER HEALTH. ADEQUATE CALCIUM AND VIT D. WEIGHT BEARING EXERCISES. REPEAT BONE DENSITY WAS ORDERED.??4.?Lichen sclerosus et atrophicus? Notes: DISCUSSED FINDINGS AND CONGRATULATED PAT FOR HER DILIGENCE. CONTINUE ONCE WEEKLY APPLICATION OF MEDICATION.??5.?Atrophy of vulva? Notes: CONTINUE APPLYING ESTRADIOL CREAM ALONG VULVA. CALL FOR REFILLS.??6.?Postmenopausal atrophic vaginitis? Notes: CONTINUE APPLYING ESTRADIOL CREAM INTRAVAGINALLY. CALL FOR REFILLS.?? * Imaging:? * ?Imaging: MAMMOGRAM, SCR EENING * Procedure Codes:? * Preventive Medicine:? ??YOUR PREVENTIVE WELLNESS PLAN:?Osteoporosis prevention?Calcium, D, strength training.?Breast Cancer Screening (Mammogram):?annually.?Cervical Cancer Screening (Pap Smear):?q 3 years with HPV screen.?Colorectal Cancer Screening:?q 10 years.? * Follow Up:?1 Year * Images: Billing Information: * Visit Code:? [id number] Preventive Care Est Pt. Age 65 and over. * Procedure Codes:? * Sign off status: Completed true * Appointment Provider:?Usha Alexandra M.D. Date:?12/14/2023 Generated for Loreto rees/Jenny/Karlitting on:?11/23/2024 12:21 PM EST History and Physical Notes * HPI (History of Present Illness) Category Sub-Category Detail Notes Category Not es New/Follow-up Patient Consult PAT ENTERED MENOPAUSE IN 2000. SHE USES ESTRADIOL CREAM FOR ATROPHIC VAGINITIS AND ATROPHIC VULVA. VULVAR BIOPSY DONE IN 2019 SHOWED LICHEN SCLEROSUS. SHE RESPONDED WELL TO CLOBETASOL 0.05% OINTMENT AND IS ON A MAINTENANCE DOSE, ONCE WEEKLY APPLICATION. HER LAST MAMMOGRAM DONE IN NOV 2023 SHOWED BREASTS ARE NOT DENSE AND WAS NORMAL. HER LAST PAP TEST IN 2019 WAS NEGATIVE AND HPV NEGATIVE. SHE HAS NO HX OF ABNORMAL PAP TESTS. HER LAST BMD IN 2021 SHOWED THE LOWEST T-SCORE TO BE -1.9 AT THE FEMORAL NECK. FRAX=12%/2.5%. SHE HAD A COLONOSCOPY DONE IN 2019. MODERNA X 4. Annual General Health Maintenance: Current breast complaints:: no breast pain, mass, discharge, or skin changes Urinary problems:: patient r eports no urinary health problems or bowel health problems Calcium intake:: takes adequ ate calcium via diet and supplementation Significant COOK SHIP problems:: n o significant nut culler symptoms or problems Examination Category Sub-Category Detail Notes Category Not es General Exam CONSTITUTIONAL: General Appearan ce:: alert, in no acute distress, normal, well nourished NECK/THYROID: Thyroid:: normal size and shape Inspection/Palpation:: normal RESPIRATORY: Auscultation: clear to auscultation bilaterally, Respiratory Effort: normal CARDIOVASCULAR: Auscultation: regula r rate and rhythm GASTROINTESTINAL: Hernias:: no hernias present, no inguinal adenopathy Liver and Spleen:: normal Abdomen:: no masses, nontender, nondiste nded MUSCULOSKELETAL: Inspection/Palpation:: no clubb ing, cyanosis, or edema SKIN: Skin:: normal NEURO/PSYCH: Mood/Affect:: normal Orientation:: time , place, person BREAST, Right: Inspection/Palpation :: no discharge, no masses present, no nipple retraction, no skin changes, no skin dimpling, no tenderness, no lymphadenopathy, no axillary mass, no axillary tenderness BREAST, Left: Inspection/Palpation :: no discharge, no masses present, no nipple retraction, no skin changes, no skin dimpling, no tenderness, no lymphadenopathy, no axillary mass, no axillary tenderness Genitourinary EXTERNAL GENITALIA: External Gen sridhar:: normal, no lesions no recurrence of lichen sclerosus VAGINA: Vagina:: normal appearance, no a bnormal discharge, no lesions BLADDER: Bladder:: no mass, nontender URETHRA: Urethra:: no erythema or lesions present CERVIX: Cervix:: no lesions, nontender UTERUS: Uterus:: nontender, normal conto ur, normal mobility, normal size ADNEXA: Adnexa:: no masses, no tendernes s ANUS AND PERINEUM: Anus/Perineum:: visually norm al
--- OUTSIDE RECORDS SUMMARY | 2024-11-23 12:21 | XMS_ITS | Clinical Summary ---
Author Organization [facility] Address [address] [address] Phone Care Team Providers Care Excavator Operator Name Role Phone Vanesa Beasley MD Primary Care Provider [phone] Allergies Active Allergy Reactions Criticality Noted Date Comments Citalopram 11/06/2021 Levofloxacin Other (see comments) 11/06/2021 Medications albuterol HFA (PROVENTIL HFA;VENTOLIN HFA) 108 (90 Base) MCG/ACT inhaler albuterol sulfate HFA 90 mcg/actuation aerosol inhaler Active aspirin (ST CAMELIA) 81 MG EC tablet Take 1 tablet by mouth 1 (one) time each day Active atenolol-chlort halidone (TENORETIC) 50-25 MG per tablet Take 0.5 tablets by mouth 1 (one) time each day Active busPIRone (BUSPAR) 7.5 MG tablet Take 7.5 mg by mouth at bed time Active calcium carbonate-vitam in D 600-200 MG-UNIT per tablet Take 1 tablet by mouth 1 (one) time each day Active clobetasol (TEMOVATE) 0.05 % cream Active Estradiol 10 MCG tablet Insert 1 tablet into the vagina 2 (two) times a week Active fluticasone (FLONASE) 50 MCG/ACT nasal spray Administer 2 sprays into each nostril 1 (one) time each day 5 Active losartan (COZAAR) 25 MG tablet Take 1 tablet by mouth 1 (one) time each day Active Active Problems Problem Noted Date Diagnosed Date Stage 3a chronic kidney disease 08/09/2024 Acute nontraumatic kidney injury 11/06/2021 Hypertensive disorder 11/06/2021 Hematuria syndrome 11/06/2021 Resolved Problems Problem Noted Date Diagnosed Date Resolved Date Vascular insufficiency 07/03/202207/03 Swollen ankle region 07/03/2022 022 Chronic kidney disease stage 2 11/06/2021 08/09/2024 Immunizations Name Administration Dates Next Due Influenza Split High Dose Preservative Free IM 1 Pneumococcal Conjugate 13-Valent 07/29/2015 Family History Medical History Relation Comments Gout Mother Hypertension Mother Stroke Mother Relation Status Comments Father Mother Social History Tobacco Use Types Packs/Day Years Used Date Smoking Tobacco: Former Smokeless Tobacco: Never Comments:Smoking History Inf o:Every day Alcohol Use Standard Drinks/Week Comments Yes 0 (1 standard drink = 0.6 oz pure alcohol) Alcoholic Drinks/day: 1-2 drinks per day Comments Unknown Sex and Gender Information Value Date Recorded Sex Assigned at Not on file Legal Sex Female 4:45 PM EST Gender Identity Not on file Sexual Orientation Not on file Last Filed Vital Signs Vital Sign Reading Time Taken Comments Blood Pressure 152/80 08/09/2024 1:05 PM EDT Pulse 73 08/09/2024 1:05 PM EDT Temperature - - Respiratory Rate - - Oxygen Saturation 98% 08/09/2024 1:05 PM EDT Inhaled Oxygen Concentration - - Weight 71.2 kg (157 lb) 08/09/2024 1:05 PM EDT Height 166.4 cm (5' 5.5 ) 08/09/2023 3:42 PM EDT Body Mass Index 25.73 08/09/2023 3:42 PM EDT Plan of Treatment Upcoming Encounters Date Type Department Care Team (Late st Contact Info) Description 02/06/2025 1:15 PM EDT Office Visit [facility] [address] [address] Lucia Gzt ARNP [address] [address] Health Maintenance Due Date Last Done Comments Breast Cancer Screening 1950 Colorectal Cancer Screening: Annual FOBT 1999 Colorectal Cancer Screening: Colonoscopy 1999 Colorectal Cancer Screening: Sigmoidoscopy 1999 Pneumococcal Vaccine: 65+ Ye ars (2 of 2 - PPSV23 or PCV20) 09/23/2015 07/29/2015 Influenza Vaccine (#1) 2024 07/25/2018 Hepatitis B Vaccine Aged Out No longe r eligible based on patient's age to complete this topic Insurance MEDICARE [facility] MEDICARE [facility] Care Teams Excavator Operator Relationship Specialty Start Date End Date Vanesa Beasley MD [address] [place] [address] PCP - General 10/21/20
--- OUTSIDE RECORDS SUMMARY | 2024-11-23 12:21 | XMS_ITS ---
Author Organization [facility] Address [address] [place] [address] Care Team Providers Care At Risk Specialist Name Role Phone Ramos BOSS, Vanesa Primary Care Provider Usha Gamboa Unavailable [phone] Allergies Allergen (clinical drug ingredient) Drug/Non Drug Allergy documented on EMR Reaction Allergy Type Onset Date Status citalopram Citalopram Hydrobromide Leg Cramps Drug Allergy Active REASON FOR VISIT LR MEDICARE PE Encounters Encounter Location Date Provider Diagnosis [facility] [address] [address] 10/28/2023 Usha Alexandra Plan Of Treatment Next Appt Details Provider Name:Usha pastor, 12/20/2024 11:00:00 AM, [address] [place] [address], [address], [place], [address], Progress Notes * CESIA OBREGONBRYANOB:1950 (74 yo F)Acc No.[id number]:10/28/2023 PROGRESS NOTES Patient:?DANIEL OBREGON Appointment Provider:?Usha pastor M.D. :1950???Age:73 Y???Sex:Female D ate:10/28/2023 Address:[address] [place] [address], [facility] Pcp:Vanesa Beasley MD Subjective: * Chief Complaints: * ???1. LR MEDICARE PE. * Medical History:?Postmenopau caleb atrophic vaginitis, Anxiety disorder, unspecified, Menopausal and female climacteric states, Major depressive disorder, single episode, unspecified, Other hyperlipidemia, Essential (primary) hypertension, Lichen sclerosus et atrophicus, Atrophy of vulva. * Occupational Therapy Assistant History:?/ Para?2/2.?Sexual activity?currently sexually active.?Last Pap Smear:?07/10/19 NIL, NEG HRHPV, 05/12/13, neg.?Mammogram:?08/04/22 < 50% density, 04/04/21 < 50% density, 11/21/19 < 50% density, 2018, 01/11/17 < 50% density, 09/12/15 < 50% density, 07/13/14, < 50% density.?LMP and menses?[place].? Control:?None.?Colonoscopy?2019.?Bone Density:?08/04/22, 07/31/19, 09/12/15 with PCP, 04/20/12.? * OB History:?Total pregnancies?2.?Total living children?2.?NVD?2.? * Allergies:?Citalopram Hydrob romide: Leg Cramps - Allergy. Objective: * Vitals:? Assessment: Plan: * Treatment: * Images: Billing Information: * Visit Code:? * Procedure Codes:? * Electronic signature of Clara Alexandra MD on 11/23/2024 at 12:21 PM EST Sign off status: Pending * Appointment Provider:?Usha Alexandra M.D. Date:?10/28/2023 Generated for Loreto rees/Jenny/eTransmitting on:?11/23/2024 12:21 PM EST
--- OUTSIDE RECORDS SUMMARY | 2024-11-23 12:21 | XMS_ITS | Patient Health Record ---
Author Organization Total [facility] Address [address] [facility] [address] [place] [address] Care Team Providers Care Corporate Pilot Name Role Phone Vanesa Beasley MD Primary Care Provider Usha Gamboa Unavailable [phone] Allergies Allergen (clinical drug ingredient) Drug/Non Drug Allergy documented on EMR Reaction Allergy Type Onset Date Status citalopram Citalopram Hydrobromide Leg Cramps Drug Allergy Active Reason For Referral No Information Medications Medication SIG (Take, Route, Frequency, Duration) Notes Start Date End Date Status Peggy Seasonal Active Albuterol Sulfate HFA 108 (90 Base) MCG/ACT INHALE 2 PUFFS BY MOUTH EVERY 6 HOURS NEEDED Inhalation for 16 Active Clobetasol Propionate 0.05 % APPLY TO AFFECTED AREA ONCE A WEEK TOPICALLY for 90 PLS ADVISE PAT TO APPLY TWICE A WEEK IF LESIONS HAVE WORSENED. THANK YOU. Active Estradiol Vaginal Cream 0.01% 1 Gram to the affected area Vaginal/Vulva Twice a week for 90 Days 10/26/2022 Active Atenolol-Chlorthalidon e 50-25 MG TAKE 1 TABLET BY MOUTH EVERY DAY Oral for 90 Active busPIRone HCl 15 MG 1 tablet Orally Once a day Active Aspirin EC 81MG 1 ORAL daily for -3 Darci-MJ 08/07/2011 Active Losartan Potassium 25 MG TAKE 1 TABLET BY MOUTH EVERY DAY Oral for 90 Active Multivitamins 1 ORAL daily for -3 Darci-MJ 05/12/2012 Active Estradiol 0.1 MG/GM APPLY 1 GRAM VAGINALLY 2 TIMES PER WEEK for 90 Active Calcium ORAL for -3 Darci-MJ 08/07/2011 Active Social History [...] with Men only Prevention strategies discussed: Other Problems Problem Type SNOMED Code ICD Code Onset Dates Problem Status W/U Status Risk Notes Problem Screening for malignant neoplasm of breast (267370487) Encounter for other screening for malignant neoplasm of breast (Z12.39) Active confirmed Problem Postmenopausal atrophic vaginitis (58280413) Postmenopausal atrophic vaginitis (N95.2) Active confirmed Problem Localized morphea (162327863) Lichen sclerosus et atrophicus (L90.0) Active confirmed Problem Atrophy of vulva (030031647) Atrophy of vulva (N90.5) Active confirmed Problem Hyperlipidemia (92819687) Other and unspecified hyperlipidemia (272.4) Active confirmed Major Problem Anxiety state (487851416) Anxiety state, unspecified (300.00) Active confirmed Major Problem Depressive disorder (53740165) Depressive disorder, not elsewhere classified (311) Active confirmed Major Problem Essential hypertension (90748119) Unspecified essential hypertension (401.9) Active confirmed Major Problem Menopausal symptom (14033735) Symptomatic menopausal or female climacteric states (627.2) Active confirmed Major Problem Postmenopausal atrophic vaginitis (66239113) Postmenopausal atrophic vaginitis (627.3) Active confirmed Diag Problem Gynecological examination normal (815700515612791) Routine gynecological examination (V72.31) Active confirmed Major Problem Screening for malignant neoplasm of colon (965793579) Special screening for malignant neoplasms, colon (V76.51) Active confirmed Major Vital Signs Temperature 96.8 degrees Fahrenheit 12/14/2023 Blood pressure diastolic 88 mm Hg 12/14/2023 Height 64 in 12/14/2023 Blood pressure systolic 140 mm Hg 12/14/2023 Weight 158 lbs 12/14/2023 BMI 27.12 kg/m2 12/14/2023 Encounters Encounter Location Date Provider Diagnosis Total [address] [place] [address] 12/14/2023 Usha Sutherlandva Encounter for gynecological examination (general) (routine) without [...] INTRAVAGINALLY. CALL FOR REFILLS. Plan Of Treatment Pending Test Test Name Order Date MAMMOGRAM, SCREENING 09/24/2021 MAMMOGRAM, SCREENING 12/14/2023 OCCULT BLOOD X 3 08/21/2016 BONE DENSITY 09/24/2021 BONE DENSITY 12/14/2023 MM Digital Mammo Screening 01/03/2021 MM Digital Mammo Screening 09/24/2021 MM Digital Mammo Screening 10/26/2022 MM Digital Mammo Screening 12/14/2023 Next Appt Details Provider Name:Usha Juárez Diannpilar darby, 12/20/2024 11:00:00 AM, [address], [address], [place], [address], Insurance Providers Payer Name Payer Address Payer Phone Subscriber Number Group Number Insured Name Patient Relationship to Insured Coverage Start Date Coverage End Date MEDICARE [address] YONI CHAUHAN [id number] [phone] [id number] MINDI DANIEL Self - patient is the insured BC[employer] OF [facility] [address] [place] [address] [id number] ANUSHA OBREGON Spouse - patient is the spouse of the insured Medical (General) History Medical History History ICD Code Postmenopausal atrophic vaginitis N95.2 Anxiety disorder, unspecified F41.9 Menopausal and female climacteric states N95.1 Major depressive disorder, single episod e, unspecified F32.9 Other hyperlipidemia E78.4 Essential (primary) hypertension I10 Lichen sclerosus et atrophicus L90.0 Atrophy of vulva N90.5 Surgical History Surgery Date(Month/Year) Tonsillectomy Umbilical Hernia Colonoscopy Vulvar Biopsy - Lichen Sclerosus 07/11/19 Hospitalization History Reason Date(Month/Year) See Surgical Hx 2 Vaginal Deliveries
--- NOTE | 2024-11-23 15:23 | AM.OFFVISMDC ---
Intake Vital Signs 11/23/24 12:11 Height 5 ft 6 in Weight 152 lb 4 oz BMI 24.6 BP 158/90 H Blood Pressure Location Rt brachial Position Sitting Respiration 16 Pulse 73 Pulse Source Pulse Oximeter Pulse Oximetry (%) 97 Oxygen Delivery Method Room Air Intake Visit Reasons: SWV G0439 Allergies levofloxacin Allergy (Unknown, Verified 11/23/24 12:14) cramps in legs Medication List - Last Reconciled 11/23/24 by Vanesa Beasley MD albuterol sulfate 90 mcg/actuation 2 puffs PO Q6H PRN atenolol-chlorthalidone 50-25 mg 1 tab PO DAILY buspirone 1 1/2 tabl orally 2 times a day; clobetasol 0.05% grams topical QWEEK estradiol 0.01%(0.1mg/gram) vaginal fluticasone propionate 50 mcg/actuation 1 spray intranasal DAILY losartan 25 mg PO DAILY HPI SWV G0439 HPI Details Initiated the conversation about Advanced Directives. Advanced Directives help? patients prepare for current and future decisions about their medical treatment? and place of care. Discussed with patient that it is a process where a patients? current condition and prognosis are reviewed, their wishes for information? regarding their illness are elicited, and likely medical dilemmas are presented? and options discussed. The form can be amended as needed, reviewed yearly and? make changes as needed IPPE/AWV ? year old presents? for her ? Annual? Wellness Visit, initial visit.? Medical / Social History Reviewed? Past Medical History ?Yes? . ? [place]? of Care / Care Team list updated ?Yes . ? Surgical/Hospitalization? History ?Yes . ? Current Medications? (including OTC and supplements) ?Yes . ? Family History ?Yes? . ? Tobacco? Control form ?Yes . ? AUDIT-C (Alcohol use) form? ?Yes . ? Illicit drug use in Social? History ?Yes . ? Current diagnosis of? depression? ?No ? Appropriate PHQ2/PHQ9? completed ?Yes . ? Data entered by ?Medical? Pediatrics Physician and reviewed by provider ? Fall Risk ? Fall? History? Have you had any falls with? injury in the past year? ?No . ? Have you had two or more? falls in the past year? ?No . ? Fall Risk Assessment: ?No? falls in the past year . ? HRA filled out by? the patient, reviewed by Provider and scanned. ? IPPE/AWV ? Balance? Romberg? ?Yes . ? Tandem? walk ?Yes . ? Walk and? Turn ?Yes . ? Rise from? sit to stand ?Yes . ?Vision? Corrective? lens ?Yes ? Vision? screen ? Up-to-date, has an appointment [] for vision? screening and glaucoma screening ?Hearing? Whisper? test ?pass .? Initiated the conversation about Advanced Directives. Advanced Directives help? patients prepare for current and future decisions about their medical treatment? and place of care. Discussed with patient that it is a process where a patients? current condition and prognosis are reviewed, their wishes for information? regarding their illness are elicited, and likely medical dilemmas are presented? and options discussed. The form can be amended as needed, reviewed yearly and? make changes as needed Written? Plan?Completed. See Patient? Documents. [facility] Medical History (Updated 11/23/24 @ 15:19 by Vanesa Beasley MD) Anxiety Annual physical exam Osteopenia Vitamin B12 deficiency Hyperglycemia Hyperlipidemia History of mammogram CKD (chronic kidney disease), stage III Atrophic vaginitis Overweight HTN (hypertension) Surgical History H/O colonoscopy No pertinent past surgical history Family History Father No problems noted. Mother No problems noted. Social History Household Members Other:: , taking care of her ill , in wheelchair Housing: House Alcohol intake: current Alcohol intake frequency: a few times a week Patient Tobacco Use Status: Former Tobacco user e-Cigarette/Vaping Use: Never Used service: No Current occupational status: retired Cognitive needs: No Hearing needs: No Vision needs: No Questionnaire Medicare Wellness Checkup [age] What gender do you identify with?: female During the past 4 weeks, how much have you been bothered by emotional problems such as feeling anxious, depressed, irritable, sad or downhearted, and blue?: slightly During the past 4 weeks, has your physical & emotional health limited your social activities with family, friends, neighbors, or groups?: not at all During the past 4 weeks, how much bodily pain have you generally had?: mild pain During the past 4 weeks, was someone available to help you if you needed & wanted help?: yes, as much as I wanted During the past 4 weeks, what was the hardest physical activity you could do for at least 2 minutes?: heavy Can you get to places out of walking distance without help? (For eg., can you travel alone on buses, taxis or drive your car?): Yes Can you go shopping for groceries or clothes without someone's help?: Yes Can you prepare your own meals?: Yes Can you do your housework without help?: Yes Because of any health problems, do you need the help of another person with your personal care needs such as eating, bathing, dressing or getting around the house?: No Can you handle your own money without help?: Yes During the past 4 weeks, how would you rate your health in general?: very good During the past 4 weeks how have things been going for you?: very well; could hardly better Are you having difficulties driving your car?: no Do you always fasten your seat belt when you are in a car?: yes, usually During past 4 weeks, have you been bothered by the following: never: Falling or dizzy when standing up, Sexual problems?, Trouble eating well?, Teeth or denture problems?, Problems using the telephone? and Tiredness or fatigue? Have you fallen 2 or more times in the past year?: Yes Are you afraid of falling?: Yes Are you a smoker?: no During the past 4 weeks, how many drinks of wine, beer, or other alcoholic beverages did you have?: 2-5 drinks per week Do you exercise for about 20 minutes 3 or more times a week?: yes, some of the time Have you been given information to help with the following?: no: Hazards in your house that might hurt you? and no: Keeping track of your medications? How often do you have trouble taking medicines the way you have been told to take them?: I always take medicine as prescribed How confident are you that you can control & manage most of your health problems?: very confident What is your race?: White Mini Mental State Exam (MMSE) Orientation What is the (year) (season) (date) (day) (month)?: year, season, date, day and month Where are we (state) (county) (town or city) (hospital) (floor)?: state, county, town or city, hospital/clinic and floor Registration Name of 3 unrelated objects clearly and slowly, then ask patient to repeat all 3 of them. (1st repeat determines score. Make sure they can repeat all three): object 1, object 2 and object 3 Attention & Calculation (CHOOSE ONE) Spell WORLD backwards (DLROW): 5 letters Recall Ask patient to repeat the 3 items from question #3.: object 1, object 2 and object 3 Language Show patient a wristwatch & ask what it is. Repeat for pencil.: watch and pencil Ask the patient to repeat the phrase 'No ifs, ands, or buts' after you.: correct Ask the patient to 'take a piece of paper with their right hand' 'fold paper in half' 'place paper on floor': take paper in right hand, fold paper in half and place paper on floor Print the sentence 'CLOSE YOUR EYES' on a piece. If patient actually closes eyes then score.: followed written direction Give patient a blank piece of paper & ask to write a sentence. Score if it contains a noun & verb.: sentence contains subject and verb Score Score: 29 PHQ-9 Over the last 2 weeks, how often have you been bothered by any of the following problems? 1. Little interest or pleasure in doing things: not at all 2. Feeling down, depressed, or hopeless: several days 3. Trouble falling or staying asleep, or sleeping too much: not at all 4. Feeling tired or having little energy: not at all 5. Poor appetite or overeating: not at all 6. Feeling bad about yourself - or that you are a failure or have let yourself or your family down: not at all 7. Trouble concentrating on things, such as reading the newspaper or watching television: not at all 8. Moving or speaking so slowly that other people could have noticed. Or the opposite - being so fidgety or restless that you have been moving around a lot more than usual: not at all 9. Thoughts that you would be better off or of hurting yourself in some way: not at all Total score: 1 Depression Screening Interpretation: Negative Depression Screening Done: Yes 63595 - PHQ-9 Billing: Yes Source: Developed by Drs. Jay Tristan, Janis Inman, Samm Hayes and colleagues, with an educational jadiel from [employer]. Review of Systems Const All systems reviewed & are unremarkable except as noted in HPI and below Eyes Reports no additional complaints ENT Reports no additional complaints Card Reports no additional complaints Resp Reports no additional complaints GI Reports no additional complaints Reports no additional complaints Physical Exam Vital Signs: Last Vital Signs Pulse 73 11/23/24 12:11 Resp 16 11/23/24 12:11 BP 158/90 H 11/23/24 12:11 Pulse Ox 97 11/23/24 12:11 Oxygen Delivery Method Room Air 11/23/24 12:11 BMI result Body Mass Index 24.6 Const General: no acute distress HEENT Head: Yes normal to inspection Ears: hearing grossly normal bilaterally Neck Neck: Yes no lymphadenopathy and Yes supple Resp Effort & Inspection: normal respiratory effort Auscultation: clear to auscultation bilaterally Cardio Rhythm: regular rhythm Heart sounds: S1 normal heart sound present and S2 normal heart sound present GI Inspection: Yes normal to inspection Palpation (GI): Soft to palpation Percussion: Yes normal to percussion Auscultation: normal bowel sounds Extrem General: Yes no clubbing, cyanosis or edema Assessment & Plan Assessment & Plan (1) HTN (hypertension): Comment: BP goal < 130/80 Code(s): I10 - Essential (primary) hypertension Plan: Blood pressure is elevated and losartan will be increased to 25 mg twice a day low-sodium diet increase physical activity discussed with the patient she will continue atenolol with chlorthalidone check BMP in 1 week (2) Annual physical exam: Code(s): Z00.00 - Encounter for general adult medical examination without abnormal findings Plan: Well-balanced diet regular physical activity stress management discussed with the patient she is up-to-date with mammogram colonoscopy and DEXA by lead generation representative (3) CKD (chronic kidney disease), stage III: Comment: f/u by Dr. 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 She will follow-up in 1 month Orders: Orders Basic Metabolic Panel 1 Week I10 - Essential (primary) hypertension Medications: Changed From losartan 25 mg PO DAILY 180 tabs 3RF To losartan 25 mg PO BID 180 tabs 3RF From buspirone 15 mg PO TID 270 tabs 3RF To buspirone 1 1/2 tabl orally 2 times a day; 270 tabs 3RF Refilled losartan 25 mg PO DAILY 180 tabs 3RF Quality Reporting (2019) Depression/Bipolar (159/160/161/177) PHQ-9: Total score: 1 Coding Level of Care Code Medicare Subsequent (G0439) Diagnoses HTN (hypertension) I10 Annual physical exam Z00.00 CKD (chronic kidney disease), stage III N18.30 Anxiety F41.9 CPT Codes Advance Care Planning - Advance Care Planning discussion: On file, no changes ([id number]) Advance Care Planning - Time spent: 1-15 minutes, on File ([id number]) Additional Codes PHQ-9 - 71248 - PHQ-9 Billing: Yes ([id number]) Advance Care Planning Advance Care Planning discussion: On file, no changes Forms completed: Health Care Proxy Time spent: 1-15 minutes, on File Did not discuss due to Cultural/Spiritual beliefs: Yes
== END 2024-11-23 14:13 | disposition home or self-care (01) ==
PROVIDERS: PCP Internal Medicine; Visit Provider Internal Medicine
DX: Z00.00 Encounter for general adult medical examination without abnormal findings (principal); I12.9 Hypertensive chronic kidney disease with stage 1 through stage 4 chronic kidney disease, or unspecified chronic kidney disease; N18.30 Chronic kidney disease, stage 3 unspecified; F41.9 Anxiety disorder, unspecified

== ENCOUNTER → 2024-11-23 11:57 | Outpatient (BNVA) | payer MEDICARE, BC, SELFPAY | PROVIDERS: PCP Internal Medicine; Visit Provider Internal Medicine | DX: Z00.00 Encounter for general adult medical examination without abnormal findings (principal); I12.9 Hypertensive chronic kidney disease with stage 1 through stage 4 chronic kidney disease, or unspecified chronic kidney disease; N18.30 Chronic kidney disease, stage 3 unspecified; F41.9 Anxiety disorder, unspecified | CPT/HCPCS: 96127 ==

== ENCOUNTER 2024-12-26 12:39 | Outpatient (REF) | payer MEDICARE, BC, SELFPAY ==
[2024-12-26 17:15] LABS: Anion Gap 14 (12-20); Blood Urea Nitrogen 21 mg/dL (9-16); Calcium 9.9 mg/dL (8.4-10.2); Carbon Dioxide 27 mmol/L (22-29); Chloride 103 mmol/L (96-108); Estimated Glomerular Filt Rate 55; Glucose Random 97 mg/dL (60-115); Potassium 5.1 mmol/L (3.3-5.1); Sodium 139 mmol/L (135-145)
== END 2024-12-26 12:40 | disposition home or self-care (01) ==
LOC: HO.HMGCLDS 12:39
PROVIDERS: Visit Provider Internal Medicine
DX: I12.9 Hypertensive chronic kidney disease with stage 1 through stage 4 chronic kidney disease, or unspecified chronic kidney disease (principal); N18.30 Chronic kidney disease, stage 3 unspecified; E78.5 Hyperlipidemia, unspecified
CPT/HCPCS: 36415; 80048; 96127; 99212

== ENCOUNTER 2024-12-26 12:39 | Outpatient (AMB) | payer MEDICARE, BC, SELFPAY ==
[2024-12-26 12:43] VITALS: BP 136/74; PULSE 56; RESP 18; TEMP 36.6; O2SAT 97; BMI 24.5
--- NOTE | 2024-12-26 12:43 | A.OFFPC_ITS ---
Vital Signs 12/26/24 12:43 Height 5 ft 6 in Weight 152 lb BMI 24.5 BP 136/74 Blood Pressure Location Lt brachial Position Sitting Respiration 18 Pulse 56 Pulse Source Pulse Oximeter Temp 97.9 F Temp Source Oral Pulse Oximetry (%) 97 Oxygen Delivery Method Room Air Intake Visit Reasons: 1m f/u Intake Note: Pt is here today for 1 month follow up visit on HTN. Pt states that she has a cold. Allergies levofloxacin Allergy (Unknown, Verified 12/26/24 12:48) cramps in legs Medication List - Last Reconciled 12/26/24 by Vanesa Beasley MD albuterol sulfate 90 mcg/actuation 2 puffs PO Q6H PRN atenolol-chlorthalidone 50-25 mg 1 tab PO DAILY buspirone 1 1/2 tabl orally 2 times a day; clobetasol 0.05% grams topical QWEEK estradiol 0.01%(0.1mg/gram) vaginal fluticasone propionate 50 mcg/actuation 1 spray intranasal DAILY loratadine (Claritin) 10 mg PO DAILY losartan 25 mg PO BID Tobacco use date assessed: 12/26/24 Fall risk assessment: No Falls in past year Last assessed Fall Risk: 12/26/24 Dental Screening Dental Screen Date: 12/26/24 Did you have a dental visit in the last 12 months?: Yes Did you have a dental problem in the last 6 months where you did not have access to dental care?: No Was dental information given to patient?: Patient has dentist HPI 1m f/u HPI Details Patient presents for the follow-up on chronic anxiety better on current medications. [facility] Medical History Anxiety Annual physical exam Osteopenia Vitamin B12 deficiency Hyperglycemia Hyperlipidemia History of mammogram CKD (chronic kidney disease), stage III Atrophic vaginitis Overweight HTN (hypertension) Surgical History H/O colonoscopy No pertinent past surgical history Family History Father No problems noted. Mother No problems noted. Social History Household Members Other:: , taking care of her ill , in wheelchair Housing: House Alcohol intake: current Alcohol intake frequency: a few times a week Patient Tobacco Use Status: Former Tobacco user e-Cigarette/Vaping Use: Never Used service: No Current occupational status: retired Cognitive needs: No Hearing needs: No Vision needs: No Questionnaire PHQ-9 Over the last 2 weeks, how often have you been bothered by any of the following problems? 1. Little interest or pleasure in doing things: not at all 2. Feeling down, depressed, or hopeless: not at all 3. Trouble falling or staying asleep, or sleeping too much: not at all 4. Feeling tired or having little energy: not at all 5. Poor appetite or overeating: not at all 6. Feeling bad about yourself - or that you are a failure or have let yourself or your family down: not at all 7. Trouble concentrating on things, such as reading the newspaper or watching television: not at all 8. Moving or speaking so slowly that other people could have noticed. Or the opposite - being so fidgety or restless that you have been moving around a lot more than usual: not at all 9. Thoughts that you would be better off or of hurting yourself in some way: not at all Total score: 0 Depression Screening Interpretation: Negative Depression Screening Done: Yes 10731 - PHQ-9 Billing: Yes Source: Developed by Drs. Jay Tristan, Janis Inman, Samm Hayes and colleagues, with an educational jadiel from [employer]. Thrive Questionnaire Date Thrive assessed: 12/26/24 I am a: Patient What is your living situation today?: I have a steady place to live Within the past 12 months, did the food you bought not last and you didn't have the money to get more?: Never true Within the past 12 months, did you worry whether your food would run out before you got money to buy more?: Never true Do you have trouble paying for medicines?: No Do you have trouble getting transportation to medical appointments?: No Do you have trouble paying your heating and electricity bill?: No Do you have trouble taking care of your child, family member or friend?: No Do you have trouble with day-to-day activities such as bathing, preparing meals, shopping, managing finances, etc.?: No Are you currently unemployed and looking for a job?: Yes Are you interested in more education?: No Please select the resources that you would like help with: None Currently or been in a relationship where the following occur: No concerns reported THRIVE Score: 0 AUDIT C Alcohol Use Questionnaire (AUDIT-C) 1. How often do you have a drink containing alcohol?: Monthly or less 2. How many drinks containing alcohol do you have on a typical day when you are drinking?: 1 or 2 3. How often do you have six or more drinks on one occasion?: Never Total Score: 1 MATTHEW-7 AMB Questionnaire MATTHEW-7 Date MATTHEW - 7 assessed: 12/26/24 Feeling nervous, anxious, or on edge: 0 = Not at all Not being able to stop or control worryin = Not at all Worrying too much about different things: 0 = Not at all Trouble relaxin = Not at all Being so restless that it is hard to sit still: 0 = Not at all Becoming easily annoyed or irritable: 0 = Not at all Feeling afraid as if something awful might happen: 0 = Not at all Total MATTHEW-7 score (0-4 normal; 5-9 mild; 10-14 moderate; 15-21 severe): 0 Source: Developed by Drs. Jay Tristan, Janis Inman, Samm Hayes and colleagues, with an educational jadiel from [employer]. MATTHEW-7 Assessment Billing MATTEHW-7 Assessment Tool: MATTHEW-7 Assessment 91212 Review of Systems Const All systems reviewed & are unremarkable except as noted in HPI and below ENT Reports no additional complaints Card Reports no additional complaints Resp Reports no additional complaints GI Reports no additional complaints Reports no additional complaints Physical exam (Primary Care) Vital Signs: Last Vital Signs Temp 97.9 F 12/26/24 12:43 Pulse 56 12/26/24 12:43 Resp 18 12/26/24 12:43 BP 136/74 12/26/24 12:43 Pulse Ox 97 12/26/24 12:43 Oxygen Delivery Method Room Air 12/26/24 12:43 BMI result Body Mass Index 24.5 Tobacco/Smoking Status: Tobacco use Status Tobacco use date assessed 12/26/24 12/26/24 12:52 Patient Tobacco Use Status Former Tobacco user 12/26/24 12:52 e-Cigarette/Vaping Use Never Used 12/26/24 12:52 PHQ-9: PHQ-9 Score PHQ-9: Total score 0 12/26/24 12:52 Depression Screening Interpretation: Negative Thrive Assessment: Date of Thrive Assessment Date Thrive assessed 12/26/24 12/26/24 12:52 Currently or been in a relationship where the following occur: No concerns reported Const General: no acute distress HENMT Head: Yes normal to inspection Throat: Yes posterior oropharynx normal Neck Neck: Yes supple Resp Effort & Inspection: normal respiratory effort Auscultation: clear to auscultation bilaterally Cardio Rhythm: regular rhythm Heart sounds: S1 normal heart sound present and S2 normal heart sound present Coding Level of Care Code Est Pt Level 4 (32234) Diagnoses HTN (hypertension) I10 CKD (chronic kidney disease), stage III N18.30 Hyperlipidemia E78.5 Additional Codes MATTHEW-7 Assessment Billing - MATTHEW-7 Assessment Tool: MATTHEW-7 Assessment 20329 ([id number]) PHQ-9 - 81543 - PHQ-9 Billing: Yes ([id number]) Assessment & Plan Assessment & Plan (1) HTN (hypertension): Code(s): I10 - Essential (primary) hypertension Category: Medical Plan: Continue current medication increase physical activity low-sodium diet discussed with the patient (2) CKD (chronic kidney disease), stage III: Comment: f/u by Dr. Rodriguez Code(s): N18.30 - Chronic kidney disease, stage 3 unspecified Category: Medical Plan: Avoid nephrotoxins monitor renal 5 (3) Hyperlipidemia: Code(s): E78.5 - Hyperlipidemia, unspecified Category: Medical Plan: Continue low-cholesterol diet Orders: Orders Basic Metabolic Panel Today I10 - Essential (primary) hypertension
--- OUTSIDE RECORDS SUMMARY | 2024-12-26 14:51 | XMS_ITS | Patient Health Record ---
Author Organization [facility] Address [address] [facility] [address] [place] [address] Care Team Providers Care Document Control Clerk Name Role Phone Vanesa Beasley MD Primary Care Provider Usha Gamboa Unavailable [phone] Allergies Allergen (clinical drug ingredient) Drug/Non Drug [...] Problem Screening for malignant neoplasm of breast (883470967) Encounter for other screening for malignant neoplasm of breast (Z12.39) Active confirmed Problem Postmenopausal atrophic vaginitis (68835418) Postmenopausal atrophic vaginitis (N95.2) Active confirmed Problem Localized morphea (593286266) Lichen sclerosus et atrophicus (L90.0) Active confirmed Problem Atrophy of vulva (260431961) Atrophy of vulva (N90.5) Active confirmed Problem Hyperlipidemia (21323345) Other and unspecified hyperlipidemia (272.4) Active confirmed Major Problem Anxiety state (127955068) Anxiety state, unspecified (300.00) Active confirmed Major Problem Depressive disorder (77322290) Depressive disorder, not elsewhere classified (311) Active confirmed Major Problem Essential hypertension (33773316) Unspecified essential hypertension (401.9) Active confirmed Major Problem Menopausal symptom (40777892) Symptomatic menopausal or female climacteric states (627.2) Active confirmed Major Problem Postmenopausal atrophic vaginitis (97784742) Postmenopausal atrophic vaginitis (627.3) Active confirmed Diag Problem Gynecological examination normal (150187208932851) Routine gynecological examination (V72.31) Active confirmed Major Problem Screening for malignant neoplasm of colon (715236625) Special screening for malignant neoplasms, colon (V76.51) Active confirmed Major Plan Of Treatment Pending Test Test Name Order Date MAMMOGRAM, SCREENING 09/24/2021 MAMMOGRAM, SCREENING 12/14/2023 OCCULT BLOOD X 3 08/21/2016 BONE DENSITY 09/24/2021 BONE DENSITY 12/14/2023 MM Digital Mammo Screening 01/03/2021 MM Digital Mammo Screening 09/24/2021 MM Digital Mammo Screening 10/26/2022 MM Digital Mammo Screening 12/14/2023 Next Appt Details Provider Name:Usha pastor, 01/11/2025 02:00:00 PM, [address] [facility], [address], [place], [address], Insurance Providers Payer Name Payer Address Payer Phone Subscriber Number Group Number Insured Name Patient Relationship to Insured Coverage Start Date Coverage End Date MEDICARE [address] [place] [id number] DANIEL OBREGON Self - patient is the insured BCBS OF [facility] [address] [place] [address] [phone] [id number] ANUSHA OBREGON Spouse - patient is the [...]
--- OUTSIDE RECORDS SUMMARY | 2024-12-26 14:51 | XMS_ITS ---
Author Organization [facility] Address [address] [facility] [address] [place] [address] Care Team Providers Care Supervisor Roller Shop Name Role Phone Ramos BOSS, Vanesa Primary Care Provider Usha Gamboa Unavailable [phone] REASON FOR VISIT INTERVAL BREAST & PELVIC- LICHEN SCLEROSIS Encounters Encounter Location Date Provider Diagnosis [facility] [address] [address] 12/20/2024 Usha Alexandra Plan Of Treatment Next Appt Details Provider Name:Usha pastor, 01/11/2025 02:00:00 PM, [address] [place] [address], [facility] [address], [place], [address], Progress Notes * IZZY OBREGONOB:1950 (74 yo F)Acc No.[id number]:12/20/2024 PROGRESS NOTES Patient:?DANIEL OBREGON Appointment Provider:?Usha pastor M.D. :1950???Age:74 Y???Sex:Female D ate:12/20/2024 Address:[address] [place] [address], , [place] Pcp:Vanesa Beasley MD Subjective: * Chief Complaints: * ???1. INTERVAL BREAST & PELV IC- LICHEN SCLEROSIS. * Medical History:? Objective: * Vitals:? Assessment: Plan: * Treatment: * Images: Billing Information: * Visit Code:? * Procedure Codes:? * Electronic signature of Clara Alexandra MD on 12/26/2024 at 02:51 PM EDT Sign off status: Pending * Appointment Provider:?Usha Alexandra M.D. Date:?12/20/2024 Generated for Loreto rees/Jenny/Melo on:?12/26/2024 02:51 PM EDT
--- OUTSIDE RECORDS SUMMARY | 2024-12-26 14:51 | XMS_ITS ---
Author Organization [facility] Address [address] [facility] [address] [place] [address] Care Team Providers Care Readers' Advisory Service Librarian Name Role Phone Vanesa Beasley MD Primary Care Provider Usha Gamboa Unavailable [phone] Allergies Allergen (clinical drug ingredient) Drug/Non Drug Allergy documented on EMR Reaction Allergy Type Onset Date Status citalopram Citalopram Hydrobromide Leg Cramps Drug Allergy Active REASON FOR VISIT LR MEDICARE PE, Annual SOCIAL SERVICE TECHNICIAN Physical 60-85+ Medications Medication SIG (Take, Route, [...] 12/14/2023 Encounters Encounter Location Date Provider Diagnosis [address] [address] 12/14/2023 Usha Alexandra Encounter for gynecological examination [...] Up: 1 Year, Reason: Provider Name:Usha pastor, 01/11/2025 02:00:00 PM, [address] [place] [address], [facility] [address], [place], [address], Progress Notes * IZZY OBREGONOB:1950 (73 yo F)Acc No.[id number]:12/14/2023 PROGRESS NOTES Patient:?CESIA OBREGONRA Appointment Provider:?Usha pastor M.D. :1950???Age:73 Y???Sex:Female D ate:12/14/2023 Address:[address] [place], [place] [id number] Pcp:Vanesa Beasley MD Subjective: * Chief Complaints: * ???LR MEDICARE PEAnnual SOCIAL SERVICE TECHNICIAN Physical 60-85+ * HPI: ???New/Follow-up Patient Consult:? [...] adequate calcium via diet and supplementation ?Significant SOCIAL SERVICE TECHNICIAN problems:?no significant interdisciplinary professor symptoms or problems * ROS:?general:?no?chest pain.?no?palpitations.?no?headache.?no?cough.?no?shortness of breath.?no?fever.?no?unexplained weight loss.?no?nausea/vomiting.?no?change in bowel movements.?no blood in stool.?no?genitourinary complaints.?no?skin complaints.? * Medical History:? 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 Control:?None.?Colonoscopy?2019.?Bone Density:?08/04/22, 07/31/19, 09/12/15 with PCP, 04/20/12.? [...] Temp: 96.8 F. * Examination: ???General Exam: ?CONSTITUTIONAL:?General Appearance:?alert, in no acute distress, normal, well nourished ?NECK/THYROID:?Inspection/Palpation:?normal ?Thyroid:?normal size and shape ?RESPIRATORY:?Auscultation: clear to auscultation bilaterally, Respiratory Effort: normal.?CARDIOVASCULAR:?Auscultation: regular rate and rhythm.?BREAST, Right:?Inspection/Palpation:?no discharge, no masses present, no nipple retraction, no skin changes, no skin dimpling, no tenderness, no lymphadenopathy, no axillary mass, no axillary tenderness ?BREAST, Left:?Inspection/Palpation:?no discharge, no masses present, no nipple retraction, no skin changes, no skin dimpling, no tenderness, no lymphadenopathy, no axillary mass, no axillary tenderness ?GASTROINTESTINAL:?Abdomen:?no masses, nontender, nondistended ?Liver and Spleen:?normal ?Hernias:?no hernias present, no inguinal adenopathy ?MUSCULOSKELETAL:?Inspection/Palpation:?no clubbing, cyanosis, or edema ?SKIN:?Skin:?normal ?NEURO/PSYCH:?Orientation:?time , place, person ?Mood/Affect:?normal?Genitourinary: ?EXTERNAL GENITALIA:?External Genitalia:?normal, no lesions no recurrence of lichen sclerosus ?VAGINA:?Vagina:?normal appearance, no abnormal discharge, no lesions ?BLADDER:?Bladder:?no mass, nontender ?URETHRA:?Urethra:?no erythema or lesions present ?CERVIX:?Cervix:?no lesions, nontender ?UTERUS:?Uterus:?nontender, normal contour, normal mobility, normal size ?ADNEXA:?Adnexa:?no masses, no tenderness ?ANUS AND PERINEUM:?Anus/Perineum:?visually normal??? Assessment: * Assessment: 1.?Encounter for gynecologic al [...] * Images: Billing Information: * Visit Code:? 53511 Preventive Care Est Pt. Age 65 and over. * Procedure Codes:? * Sign off status: Completed true * Appointment Provider:?Usha Alexandra M.D. Date:?12/14/2023 Generated for Loreto rees/Jenny/Arturosmitting on:?12/26/2024 02:51 PM EDT History and Physical Notes * HPI (History of Present Illness) Category Sub-Category Detail Notes Category Not es New/Follow-up Patient Consult PAT ENTERED MENOPAUSE IN 2000. SHE USES ESTRADIOL CREAM FOR ATROPHIC VAGINITIS AND ATROPHIC VULVA. VULVAR BIOPSY DONE IN 2018 SHOWED LICHEN SCLEROSUS. [...] or skin changes Urinary problems:: patient r eportkassy no urinary health problems or bowel health problems Calcium intake:: takes adequ ate calcium via diet and supplementation Significant SOCIAL SERVICE TECHNICIAN problems:: n o significant interdisciplinary professor symptoms or problems Examination Category Sub-Category Detail [...]
--- OUTSIDE RECORDS SUMMARY | 2024-12-26 14:51 | XMS_ITS | Clinical Summary ---
Author Organization [facility] Address [address] [address] Phone Care Team Providers Care Downstream Biomanufacturing Technician Name Role Phone Vanesa Beasley MD Primary Care Provider [phone] Allergies Active Allergy Reactions Criticality Noted Date [...] Care Team (Late st Contact Info) Description 01/22/2025 Orders Only [facility] [address] [phone] Leidy Light PA-C [address] [facility], [address] [place] [address] Stage 3a chronic kidney disease (HCC); Hypertensive disorder 02/06/2025 1:15 PM EDT [facility] [address] [phone] Jessica GtzniferCINDY [address] [address] Health Maintenance Due Date Last Done Comments [...] age to complete this topic Insurance MEDICARE [facility] MEDICARE [facility] Care Teams Downstream Biomanufacturing Technician Relationship Specialty Start Date End Date Vanesa Beasley MD [address] [place] [address] PCP - General 10/21/20
--- OUTSIDE RECORDS SUMMARY | 2024-12-26 14:52 | XMS_ITS ---
Author Organization [facility] Address [address] [place] [address] Care Team Providers Care Portrait Consultant Name Role Phone Ramos BOSS, Vanesa Primary Care Provider Usha Gamboa Unavailable [phone] Allergies Allergen (clinical drug ingredient) Drug/Non Drug Allergy documented on EMR Reaction Allergy Type Onset Date Status citalopram Citalopram Hydrobromide Leg Cramps Drug Allergy Active REASON FOR VISIT LR MEDICARE PE Encounters Encounter Location Date Provider Diagnosis [facility] [address] [address] 10/28/2023 Usha Alexandra Plan Of Treatment Next Appt Details Provider Name:Usha pastor, 01/11/2025 02:00:00 PM, [address] [place] [address], [address], [place], [address], Progress Notes * PAULCESIA GARCIABRYANOB:1950 (74 yo F)Acc No.[id number]:10/28/2023 PROGRESS NOTES Patient:?DANIEL OBREGON Appointment Provider:?Usha pastor M.D. :1950???Age:73 Y???Sex:Female D ate:10/28/2023 Address:[address] [place] [address], [facility] Pcp:Vanesa Beasley MD Subjective: * Chief Complaints: * ???1. LR MEDICARE PE. * Medical History:?Postmenopau caleb atrophic vaginitis, Anxiety disorder, unspecified, Menopausal and female climacteric states, Major depressive disorder, single episode, unspecified, Other hyperlipidemia, Essential (primary) hypertension, Lichen sclerosus et atrophicus, Atrophy of vulva. 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 Date:?10/28/2023 Generated for Loreto rees/Jenny/eTransmitting on:?12/26/2024 02:51 PM EDT
== END 2024-12-26 13:48 | disposition home or self-care (01) ==
LOC: HO.HMCC 12:40
PROVIDERS: PCP Internal Medicine; Visit Provider Internal Medicine
DX: I10 Essential (primary) hypertension (principal); N18.30 Chronic kidney disease, stage 3 unspecified; E78.5 Hyperlipidemia, unspecified

== ENCOUNTER 2025-04-17 10:59 | Outpatient (AMB) | payer MEDICARE, BC, SELFPAY ==
--- OUTSIDE RECORDS SUMMARY | 2024-12-20 07:00 | XMS_ITS ---
Author Organization Total [facility] Address [address] [facility] [address] [place] [address] Care Team Providers Care Photographer'S Assistant Name Role Phone Ramos BOSS, Vanesa Primary Care Provider Usha Gamboa Unavailable [phone] REASON FOR VISIT INTERVAL BREAST & PELVIC- LICHEN SCLEROSIS Encounters Encounter Location Date Provider Diagnosis [facility] [address] [address] 12/20/2024 Usha Alexandra Plan Of Treatment Next Appt Details Provider Name:Usha pastor, 01/16/2026 01:00:00 PM, [address] [place] [address], [facility] [address], [place], [address], Progress Notes * IZZY OBREGONOB:1950 (74 yo F)Acc No.[id number]:12/20/2024 PROGRESS NOTES Patient: DANIEL MAS Appointment Provider: Rakesh Alexandra M.D. :1950 A ge:74 Y S ex:Female Date:12/20/2024 Address:[address] [place] [address], , [facility] Pcp:Vanesa Beasley MD Subjective: * Chief Complaints: * 1 . INTERVAL BREAST & PELVIC- LICHEN SCLEROSIS. * Medical History: Objective: * Vitals: Assessment: Plan: * Treatment: * Images: Billing Information: * Visit Code: * Procedure Codes: * Electronic signature of Clara Alexandra MD on 04/17/2025 at 12:04 PM EDT Sign off status: Pending * Appointment Provider: Rakesh Alexandra M.D. Date: 0 12/20/2024 Generated for Loreto rees/Jenny/Melo on: 0 04/17/2025 12:04 PM EDT
[2025-04-17 11:00] VITALS: BP 140/86; PULSE 94; RESP 18; TEMP 36.5; O2SAT 98; BMI 24.5
--- NOTE | 2025-04-17 11:00 | MHC.PC.OV ---
Vital Signs 04/17/25 11:00 Height 5 ft 6 in Weight 152 lb BMI 24.5 BP 140/86 H Blood Pressure Location Lt brachial Position Sitting Respiration 18 Pulse 94 Pulse Source Pulse Oximeter Temp 97.7 F Temp Source Oral Pulse Oximetry (%) 98 Oxygen Delivery Method Room Air Intake Visit Reasons: Hospital follow up Intake Note: Pt is here today for Hospital follow up visit. Allergies levofloxacin Allergy (Unknown, Verified 04/17/25 11:03) cramps in legs Medication List - Last Reconciled 04/17/25 by Vanesa Beasley MD albuterol sulfate 90 mcg/actuation 2 puffs PO Q6H PRN atenolol 50 mg PO DAILY atenolol-chlorthalidone 50-25 mg 1 tab PO DAILY buspirone 1 1/2 tabl orally 2 times a day; clobetasol 0.05% grams topical QWEEK estradiol 0.01%(0.1mg/gram) vaginal fluticasone propionate 50 mcg/actuation 1 spray intranasal DAILY loratadine (Claritin) 10 mg PO DAILY losartan 25 mg PO BID Tobacco use date assessed: 04/17/25 Fall risk assessment: No Falls in past year Last assessed Fall Risk: 04/17/25 Dental Screening Dental Screen Date: 12/26/24 [facility] Hospital follow up HPI Details Patient presents for the follow-up for hospitalization at [facility] for acute hyponatremia. Patient was increase in fluid intake when the weather was hot and became confused. A sodium level was 110. Patient is feeling better. Atenolol with chlorthalidone was stopped in the hospital. Patient reports increasing sodium intake by eating pretzels. [facility] Medical History Anxiety Annual physical exam Osteopenia Vitamin B12 deficiency Hyperglycemia Hyperlipidemia History of mammogram CKD (chronic kidney disease), stage III Atrophic vaginitis Overweight HTN (hypertension) Surgical History H/O colonoscopy No pertinent past surgical history Family History Father No problems noted. Mother No problems noted. Social History Household Members Other:: , taking care of her ill , in wheelchair Housing: House Alcohol intake: current Alcohol intake frequency: a few times a week Patient Tobacco Use Status: Former Tobacco user e-Cigarette/Vaping Use: Never Used service: No Current occupational status: retired Cognitive needs: No Hearing needs: No Vision needs: No Questionnaire Thrive Questionnaire Date Thrive assessed: 11/23/24 I am a: Patient What is your living situation today?: I have a steady place to live Within the past 12 months, did the food you bought not last and you didn't have the money to get more?: Never true Within the past 12 months, did you worry whether your food would run out before you got money to buy more?: Never true Do you have trouble paying for medicines?: No Do you have trouble getting transportation to medical appointments?: No Do you have trouble paying your heating and electricity bill?: No Do you have trouble taking care of your child, family member or friend?: No Do you have trouble with day-to-day activities such as bathing, preparing meals, shopping, managing finances, etc.?: No Are you currently unemployed and looking for a job?: Yes Are you interested in more education?: No Please select the resources that you would like help with: None Currently or been in a relationship where the following occur: No concerns reported THRIVE Score: 0 MATTHEW-7 AMB Questionnaire MATTHEW-7 Date MATTHEW - 7 assessed: 12/26/24 Source: Developed by Drs. Jay Tristan, Janis Inman, Samm Hayes and colleagues, with an educational jadiel from [employer]. Review of Systems Const All systems reviewed & are unremarkable except as noted in HPI and below ENT Reports no additional complaints Card Reports no additional complaints Resp Reports no additional complaints GI Reports no additional complaints Physical exam (Primary Care) Vital Signs: Last Vital Signs Temp 97.7 F 04/17/25 11:00 Pulse 94 04/17/25 11:00 Resp 18 04/17/25 11:00 BP 140/86 H 04/17/25 11:00 Pulse Ox 98 04/17/25 11:00 Oxygen Delivery Method Room Air 04/17/25 11:00 BMI result Body Mass Index 24.5 Tobacco/Smoking Status: Tobacco use Status Tobacco use date assessed 04/17/25 04/17/25 11:06 Patient Tobacco Use Status Former Tobacco user 04/17/25 11:01 e-Cigarette/Vaping Use Never Used 04/17/25 11:01 Thrive Assessment: Date of Thrive Assessment Date Thrive assessed 11/23/24 04/17/25 11:01 Currently or been in a relationship where the following occur: No concerns reported Const General: no acute distress Eyes General: appearance normal, both eyes and all related structures Neck Neck: Yes supple Resp Effort & Inspection: normal respiratory effort Auscultation: clear to auscultation bilaterally Cardio Rhythm: regular rhythm Heart sounds: S1 normal heart sound present and S2 normal heart sound present Coding Level of Care Code Est Pt Level 3 (04280) Diagnoses HTN (hypertension) I10 Assessment & Plan Assessment & Plan (1) HTN (hypertension): Code(s): I10 - Essential (primary) hypertension Category: Medical Plan: Continue losartan and restart atenolol without chlorthalidone. Patient was advised to add a a glass of sport drink daily especially with hot weather and increased sweating. Follow-up in 3 weeks with a blood work before Orders: Orders Comprehensive Met. Panel 3 Weeks I10 - Essential (primary) hypertension Medications: New atenolol 50 mg PO DAILY 90 tabs 0RF
--- OUTSIDE RECORDS SUMMARY | 2025-04-17 12:04 | XMS_ITS | Clinical Summary ---
Author Organization [facility] Address [address] [address] Phone Care Team Providers Care Card Grinder Name Role Phone Vanesa Beasley MD Primary Care Provider [phone] Allergies Active Allergy Reactions Criticality Noted Date [...] Active losartan (COZAAR) 25 MG tablet Take 25 mg by mouth in the morning and 25 mg in the evening. Active Active Problems Problem Noted Date Diagnosed Date Stage 3a chronic kidney disease 08/09/2024 Acute nontraumatic kidney injury 11/06/2021 Hypertensive disorder 11/06/2021 Hematuria syndrome 11/06/2021 Resolved Problems Problem Noted Date Diagnosed Date Resolved Date Vascular insufficiency 07/03/202207/03 Swollen ankle region 07/03/2022 022 Chronic kidney disease stage 2 11/06/2021 08/09/2024 Encounters Date Type Department Care Team Description 02/06/2025 1:15 PM EDT Office Visit [facility] [address] [facility] [address] [place] [phone] Lucia Gtz ARNP Stage 3a chronic kidney disease (HCC) (Primary Dx); Hypertensive disorder 01/22/2025 Orders Only [facility] [address] [facility] [address] [place] [address] Leidy Light PA-C Stage 3a chronic kidney disease (HCC); Hypertensive disorder from Last 3 Months Immunizations Immunization Administration Dates Next Due Influenza Split High [...] Sign Reading Time Taken Comments Blood Pressure 116/80 02/06/2025 1:29 PM EDT Pulse 65 02/06/2025 1:06 PM EDT Temperature - - Respiratory Rate - - Oxygen Saturation 97% 02/06/2025 1:06 PM EDT Inhaled Oxygen Concentration - - Weight 69.6 kg (153 lb 6.4 oz) 02/06/2025 1:06 P M EDT Height 166.4 cm (5' 5.5 ) 08/09/2023 3:42 PM EDT Body Mass Index 25.14 08/09/2023 3:42 PM EDT Plan of Treatment Upcoming Encounters Date Type Department Care Team (Late st Contact Info) Description 10/08/2025 1:15 PM EST Office Visit [facility] [address] [phone] Lucia Gtz ARNP [address] [address] Health Maintenance Due Date Last Done Comments Breast Cancer Screening 1950 Colorectal Cancer Screening: Annual FOBT 1999 Colorectal Cancer Screening: Colonoscopy 1999 Colorectal Cancer Screening: Sigmoidoscopy 1999 Pneumococcal Vaccine: 50+ Ye ars (2 of 2 - PPSV23, PCV20, or PCV21) 09/23/2015 07/29/2015 Influenza Vaccine (#1) 2025 07/25/2018 Pneumococcal Vaccine: Peds ( 0 to 5 Years) and At-Risk Patients (6 to 49 Years) Discontinued 07/29/2015 Hepatitis B Vaccine Aged Out No longe r eligible based on patient's age to complete this topic Procedures Procedure Name Priority Date/Time Associated Diagnosis Comments PROTEIN / CREATININE RATIO, URINE Routine 01/31/2025 1:28 PM EDT Stage 3a chronic kidney disease (HCC) Hypertensive disorder URINE ALBUMIN / CREATININE RATIO Routine 01/31/2025 1:28 PM EDT Stage 3a chronic kidney disease (HCC) Hypertensive disorder PTH, INTACT Routine 01/31/2025 1:28 PM EDT Stage 3a chronic kidney disease (HCC) Hypertensive disorder RENAL FUNCTION PANEL Routine 01/31/2025 1:28 PM EDT Stage 3a chronic kidney disease (HCC) Hypertensive disorder CBC Routine 01/31/2025 1:28 PM EDT Stage 3a chronic kidney disease (HCC) Hypertensive disorder from Last 3 Months Results * Urine Protein / creatinine ratio (01/31/2025 1:28 PM EDT) Creatinine, Ur 83.5 Not Estab. mg/dL [facility] Protein, Ur 8.2 Not Estab. mg/dL [facility] Urine Protein/Creatin ine Ratio 98 0 - 200 mg/g creat [facility] Urine specimen (specimen) Urine specimen obtained by clean catch procedure / Unknown 01/31/2025 1:28 PM EDT 01/31/2025 us Leidy Light PA-C LAB URINE ORDERABLES Final Res ult Performing Organization Address [facility] Co de Phone Number [facility] [address] [place] [address] * Urine Albumin / Creatinine Ratio (01/31/2025 1:28 PM EDT) Albumin, Urine <3.0 Not Estab. ug/mL [facility] Albumin/Creatin ine Ratio <4 0 - 29 mg/g creat [facility] Comment: Normal: 0 - 29 Moderately increased: 30 - 300 Severely increased: >300 Urine specimen (specimen) Urine specimen obtained by clean catch procedure / Unknown 01/31/2025 1:28 PM EDT 01/31/2025 us Leidy Light PA-C LAB URINE ORDERABLES Final Res ult Performing Organization Address [facility] Co de Phone Number [facility] [address] [place] [address] * (ABNORMAL) CBC (01/31/2025 1:28 PM EDT) WBC 7.3 3.4 - 10.8 x10E3/uL [facility] RBC 3.79 3.77 - 5.28 x10E6/uL [facility] Hemoglobin 12.6 11.1 - 15.9 g/dL [facility] Hematocrit 37.9 34.0 - 46.6 % [facility] MCV 100(H) 79 - 97 fL [facility] MCH 33.2(H) 26.6 - 33.0 pg [facility] MCHC 33.2 31.5 - 35.7 g/dL [facility] RDW 11.7 11.7 - 15.4 % [facility] Platelets 174 150 - 450 x10E3/uL [facility] Blood specimen (specimen) Venous blood / Unknown 01/31/2025 1:28 PM EDT 01/31/2025 Leidy Light PA-C LAB BLOOD ORDERABLES Final Res ult Performing Organization Address City/[facility]/ZIP Co de Phone Number [facility] [address] [place] [address] * PTH, intact (01/31/2025 1:28 PM EDT) PTH 52 15 - 65 pg/mL [facility] Blood specimen (specimen) Venous blood / Unknown 01/31/2025 1:28 PM EDT 01/31/2025 us Leidy Light PA-C LAB BLOOD ORDERABLES Final Res ult Performing Organization Address City/[facility]/ZIP Co de Phone Number [facility] [address] [place] [address] * (ABNORMAL) Renal function panel (01/31/2025 1:28 PM EDT) Glucose 98 70 - 99 mg/dL [facility] BUN 22 8 - 27 mg/dL [facility] Creatinine 1.06(H) 0.57 - 1.00 mg/dL [facility] eGFR CKD-EPI CR 2020 55(L) >59 mL/min/1.7 3 [facility] BUN/Creatinine Ratio 21 12 - 28 [facility] Sodium 140 134 - 144 mmol/L [facility] Potassium 4.2 3.5 - 5.2 mmol/L [facility] Chloride 100 96 - 106 mmol/L [facility] Bicarbonate (CO2) 24 20 - 29 mmol/L [facility] Calcium 9.7 8.7 - 10.3 mg/dL [facility] Albumin 4.3 3.8 - 4.8 g/dL [facility] Phosphorus 3.8 3.0 - 4.3 mg/dL [facility] Blood specimen (specimen) Venous blood / Unknown 01/31/2025 1:28 PM EDT 01/31/2025 us Leidy Light PA-C LAB BLOOD ORDERABLES Final Res ult [facility] [address] [place] [address] from Last 3 Months Insurance Medicare [facility] Member Subscriber Plan / Payer (Ef fective 2015-Present) Name:Korina Corbin Relation to Subscriber:Spouse Name:JOSUE CORBIN Date of :1899 (Home) Address: [address] [place] [id number] Payer ID:[id number] (NAIC) Group ID:[id number] Type:Not on file Address: [address] [place] [address] Medicare [facility] Member Subscriber Plan / Payer (Ef fective 2015-Present) Name:Korina Corbin Relation to Subscriber:Spouse Name:JOSUE CORBIN Date of :1899 (Home) Address: [address] [place] [id number] Payer ID:[id number] (NAIC) Group ID:[id number] Type:Not on file Address: [facility] [id number] [place] [address] Care Teams Card Grinder Relationship Specialty Start Date End Date Vanesa Beasley MD [address] [place] [address] PCP - General 10/21/20
== END 2025-04-17 11:46 | disposition home or self-care (01) ==
LOC: HO.HMCC 11:00
PROVIDERS: PCP Internal Medicine; Visit Provider Internal Medicine
DX: I10 Essential (primary) hypertension (principal)

== ENCOUNTER → 2025-04-17 10:59 | Outpatient (BNVA) | payer MEDICARE, BC, SELFPAY | PROVIDERS: PCP Internal Medicine; Visit Provider Internal Medicine | DX: I10 Essential (primary) hypertension (principal) | CPT/HCPCS: 99212 ==

== ENCOUNTER 2025-05-14 12:57 | Outpatient (AMB) | payer MEDICARE, BC, SELFPAY ==
--- OUTSIDE RECORDS SUMMARY | 2024-12-20 07:00 | XMS_ITS ---
Author Organization Total [facility] Address [address] [facility] [address] [place] [address] Care Team Providers Care Backend Tester Name Role Phone Ramos BOSS, Vanesa Primary Care Provider Usha Gamboa Unavailable [phone] REASON FOR VISIT INTERVAL BREAST & PELVIC- LICHEN SCLEROSIS Encounters Encounter Location Date Provider Diagnosis [facility] [address] [address] 12/20/2024 Usha Alexandra Plan Of Treatment Next Appt Details Provider Name:Usha pastor, 01/16/2026 01:00:00 PM, [address] [facility], [facility] [address], [place], [address], Progress Notes * IZZY OBREGONOB:1950 (74 yo F)Acc No.[id number]:12/20/2024 PROGRESS NOTES Patient: DANIEL MAS Appointment Provider: Rakesh Alexandra M.D. :1950 A ge:74 Y S ex:Female Date:12/20/2024 Address:[address] [place] [address], , [facility] [facility] Pcp:Vanesa Beasley MD Subjective: * Chief Complaints: * 1 . INTERVAL BREAST & PELVIC- LICHEN SCLEROSIS. * Medical History: Objective: * Vitals: Assessment: Plan: * Treatment: * Images: Billing Information: * Visit Code: * Procedure Codes: * Electronic signature of Clara Alexandra MD on 05/14/2025 at 01:17 PM EDT Sign off status: Pending * Appointment Provider: Rakesh Alexandra M.D. Date: 0 12/20/2024 Generated for Loreto rees/Jenny/Melo on: 0 05/14/2025 01:17 PM EDT
[2025-05-14 13:00] VITALS: PULSE 63; RESP 18; TEMP 36.7; O2SAT 97; BMI 24.5
--- NOTE | 2025-05-14 13:00 | A.OFFPC_ITS ---
Vital Signs 05/14/25 13:00 Height 5 ft 6 in Weight 152 lb BMI 24.5 Respiration 18 Pulse 63 Pulse Source Pulse Oximeter Temp 98.0 F Temp Source Oral Pulse Oximetry (%) 97 Oxygen Delivery Method Room Air Intake Visit Reasons: 3 weeks f/u Intake Note: Pt is here today for 3 weeks follow up visit on BP. Allergies levofloxacin Allergy (Unknown, Verified 05/14/25 13:03) cramps in legs Medication List - Last Reconciled 05/14/25 by Vanesa Beasley MD albuterol sulfate 90 mcg/actuation 2 puffs PO Q6H PRN atenolol 50 mg PO DAILY buspirone 1 1/2 tabl orally 2 times a day; clobetasol 0.05% grams topical QWEEK estradiol 0.01%(0.1mg/gram) vaginal fluticasone propionate 50 mcg/actuation 1 spray intranasal DAILY loratadine (Claritin) 10 mg PO DAILY losartan 25 mg PO BID Tobacco use date assessed: 05/14/25 Fall risk assessment: No Falls in past year Last assessed Fall Risk: 05/14/25 Dental Screening Dental Screen Date: 05/14/25 Did you have a dental visit in the last 12 months?: Yes Did you have a dental problem in the last 6 months where you did not have access to dental care?: No Was dental information given to patient?: Patient has dentist HPI 3 weeks f/u HPI Details Patient presents for the follow-up on hypertension. She has been taking losartan and atenolol and reports elevated blood pressure at home. She did not fill the prescription for atenolol with chlorthalidone yest. she used to take it for many years. Patient denies chest pain shortness or breath or headaches. She has been under lot of stress related to her sick but anxiety is better controlled on buspirone. [facility] Medical History Anxiety Annual physical exam Osteopenia Vitamin B12 deficiency Hyperglycemia Hyperlipidemia History of mammogram CKD (chronic kidney disease), stage III Atrophic vaginitis Overweight HTN (hypertension) Surgical History H/O colonoscopy No pertinent past surgical history Family History Father No problems noted. Mother No problems noted. Social History Household Members Other:: , taking care of her ill , [facility] Housing: House Alcohol intake: current Alcohol intake frequency: a few times a week Patient Tobacco Use Status: Former Tobacco user e-Cigarette/Vaping Use: Never Used service: No Current occupational status: retired Cognitive needs: No Hearing needs: No Vision needs: No Questionnaire Thrive Questionnaire Date Thrive assessed: 11/23/24 I am a: Patient What is your living situation today?: I have a steady place to live Within the past 12 months, did the food you bought not last and you didn't have the money to get more?: Never true Within the past 12 months, did you worry whether your food would run out before you got money to buy more?: Never true Do you have trouble paying for medicines?: No Do you have trouble getting transportation to medical appointments?: No Do you have trouble paying your heating and electricity bill?: No Do you have trouble taking care of your child, family member or friend?: No Do you have trouble with day-to-day activities such as bathing, preparing meals, shopping, managing finances, etc.?: No Are you currently unemployed and looking for a job?: Yes Are you interested in more education?: No Please select the resources that you would like help with: None Currently or been in a relationship where the following occur: No concerns r eported THRIVE Score: 0 MATTHEW-7 AMB Questionnaire MATTHEW-7 Date MATTHEW - 7 assessed: 12/26/24 Source: Developed by Drs. Jay Tristan, Janis Inman, Samm Hayes and colleagues, with an educational jadiel from ?. Review of Systems Const All systems reviewed & are unremarkable except as noted in HPI and below ENT Reports no additional complaints Card Reports no additional complaints Resp Reports no additional complaints GI Reports no additional complaints Reports no additional complaints Physical exam (Primary Care) Vital Signs: Last Vital Signs Temp 98.0 F 05/14/25 13:00 Pulse 63 05/14/25 13:00 Resp 18 05/14/25 13:00 Pulse Ox 97 05/14/25 13:00 Oxygen Delivery Method Room Air 05/14/25 13:00 BMI result Body Mass Index 24.5 Tobacco/Smoking Status: Tobacco use Status Tobacco use date assessed 05/14/25 05/14/25 13:09 Patient Tobacco Use Status Former Tobacco user 05/14/25 13:09 e-Cigarette/Vaping Use Never Used 05/14/25 13:09 Thrive Assessment: Date of Thrive Assessment Date Thrive assessed 11/23/24 05/14/25 13:09 Currently or been in a relationship where the following occur: No concerns reported Const General: no acute distress HENMT Head: Yes normal to inspection Eyes General: appearance normal, both eyes and all related structures Resp Effort & Inspection: normal respiratory effort Auscultation: clear to auscultation bilaterally Cardio Rhythm: regular rhythm Heart sounds: S1 normal heart sound present and S2 normal heart sound present Coding Level of Care Code Est Pt Level 4 (72422) Diagnoses HTN (hypertension) I10 Hyperlipidemia E78.5 Anxiety F41.9 Assessment & Plan Assessment & Plan (1) HTN (hypertension): Code(s): I10 - Essential (primary) hypertension Category: Medical Plan: Restart atenolol with chlorthalidone and continue losartan. Follow-up in 1 month. Basic metabolic panel will be checked in 2 weeks (2) Hyperlipidemia: Code(s): E78.5 - Hyperlipidemia, unspecified Category: Medical Plan: Continue low-cholesterol diet (3) Anxiety: Comment: Secondary to stress related to being caregiver to her ill Code(s): F41.9 - Anxiety disorder, unspecified Category: Medical Plan: Continue BuSpar Orders: Orders Complete Blood Count Auto Diff 05/30/25 E78.5 - Hyperlipidemia, unspecified, I10 - Essential (primary) hypertension Basic Metabolic Panel 05/30/25 E78.5 - Hyperlipidemia, unspecified, I10 - Essential (primary) hypertension Medications: New atenolol-chlorthalidone 50-25 mg 1 tab PO DAILY 90 tabs 0RF Discontinued atenolol Discontinued Reason: Doctor's Order 50 mg PO DAILY 90 tabs 0RF atenolol-chlorthalidone 50-25 mg Discontinued Reason: Doctor's Order 1 tab PO DAILY 90 tabs 3RF
--- OUTSIDE RECORDS SUMMARY | 2025-05-14 13:18 | XMS_ITS | Clinical Summary ---
Author Organization [facility] Address [address] [address] Phone Care Team Providers Care Engineer Exhauster Name Role Phone Vanesa Beasley MD Primary Care Provider [phone] Allergies Active Allergy Reactions Criticality Noted Date [...] kidney disease stage 2 11/06/2021 08/09/2024 Immunizations Immunization Administration Dates Next Due Influenza [...] Visit [facility] [address] [phone] Lucia Gtz ARNP [address] [phone] Health Maintenance Due Date Last Done Comments [...] patient's age to complete this topic Insurance Medicare [facility] Member Subscriber Plan / Payer (Ef fective 2015-Present) Name:Korina Obregon Relation to Subscriber:Spouse Name:JOSUE OBREGON Date of :1899 (Home) Address: [address] [place] [address] Payer ID:[id number] (NAIC) Group ID:[id number] Type:Not on file Address: [address] [place] [address] Medicare [facility] Member Subscriber Plan / Payer (Ef fective 2015-Present) Name:Korina Obregon Relation to Subscriber:Spouse Name:JOSUE OBREGON Date of :1899 (Home) Address: [address] [place] [address] Payer ID:[id number] (NAIC) Group ID:[id number] Type:Not on file Address: [address] [place] [address] Care Teams Engineer Exhauster Relationship Specialty Start Date End Date Vanesa Beasley MD [address] [place] [address] PCP - General 10/21/20
== END 2025-05-14 13:39 | disposition home or self-care (01) ==
LOC: HO.HMCC 12:58
PROVIDERS: PCP Internal Medicine; Visit Provider Internal Medicine
DX: I10 Essential (primary) hypertension (principal); E78.5 Hyperlipidemia, unspecified; F41.9 Anxiety disorder, unspecified

== ENCOUNTER → 2025-05-14 12:57 | Outpatient (BNVA) | payer MEDICARE, BC, SELFPAY | PROVIDERS: PCP Internal Medicine; Visit Provider Internal Medicine | DX: I10 Essential (primary) hypertension (principal); E78.5 Hyperlipidemia, unspecified; F41.9 Anxiety disorder, unspecified | CPT/HCPCS: 99212 ==

== ENCOUNTER 2025-06-26 12:50 | Outpatient (AMB) | payer MEDICARE, BC, SELFPAY ==
--- OUTSIDE RECORDS SUMMARY | 2024-12-20 07:00 | XMS_ITS ---
Author Organization Total [facility] Address [address] [facility] [address] [place] [address] Care Team Providers Care Head Of Biology Name Role Phone Ramos BOSS, Vanesa Primary Care Provider Usha Gamboa Unavailable [phone] REASON FOR VISIT INTERVAL BREAST & PELVIC- LICHEN SCLEROSIS Encounters Encounter Location Date Provider Diagnosis [facility] [address] [address] 12/20/2024 Usha Alexandra Plan Of Treatment Next Appt Details Provider Name:Usha pastor, 01/16/2026 01:00:00 PM, [address] [place] [address], [facility] [address], [place], [address], Progress Notes * IZZY OBREGONOB:1950 (74 yo F)Acc No.[id number]:12/20/2024 PROGRESS NOTES Patient: DANIEL MAS Appointment Provider: Rakesh Alexandra M.D. :1950 A ge:74 Y S ex:Female Date:12/20/2024 Address:[address] [place] [address], , [id number] Pcp:Vanesa Beasley MD Subjective: * Chief Complaints: * 1 . INTERVAL BREAST & PELVIC- LICHEN SCLEROSIS. * Medical History: Objective: * Vitals: Assessment: Plan: * Treatment: * Images: Billing Information: * Visit Code: * Procedure Codes: * Electronic signature of Clara Alexandra MD on 06/26/2025 at 04:47 PM EDT Sign off status: Pending * Appointment Provider: Rakesh Alexandra M.D. Date: 0 12/20/2024 Generated for Loreto rees/Jenny/Melo on: 0 06/26/2025 04:47 PM EDT
[2025-06-26 12:53] VITALS: BP 124/70; PULSE 65; RESP 19; TEMP 36.4; O2SAT 98; BMI 24.5
--- NOTE | 2025-06-26 12:53 | A.OFFPC_ITS ---
Vital Signs 06/26/25 12:53 Height 5 ft 6 in Weight 152 lb BMI 24.5 BP 124/70 Blood Pressure Location Lt brachial Position Sitting Respiration 19 Pulse 65 Pulse Source Pulse Oximeter Temp 97.6 F Temp Source Oral Pulse Oximetry (%) 98 Oxygen Delivery Method Room Air Intake Visit Reasons: 1 months f/up Intake Note: Pt is here today for 1 month follow up visit. Allergies levofloxacin Allergy (Unknown, Verified 06/26/25 12:53) cramps in legs Medication List - Last Reconciled 06/26/25 by Vanesa Beasley MD albuterol sulfate 90 mcg/actuation 2 puffs PO Q6H PRN atenolol-chlorthalidone 50-25 mg 1 tab PO DAILY buspirone 1 1/2 tabl orally 2 times a day; clobetasol 0.05% grams topical QWEEK estradiol 0.01%(0.1mg/gram) vaginal fluticasone propionate 50 mcg/actuation 1 spray intranasal DAILY loratadine (Claritin) 10 mg PO DAILY losartan 25 mg PO BID Tobacco use date assessed: 06/26/25 Fall risk assessment: No Falls in past year Last assessed Fall Risk: 06/26/25 Dental Screening Dental Screen Date: 05/14/25 HPI 1 months f/up HPI Details Patient presents for the follow-up hypertension chronic kidney disease stage 3 and anxiety stable on current medications. Patient reports her diagnosed with chronic ulcer and cellulitis. She is wheelchair bound and patient provides him with 24 hour care [facility] Medical History Anxiety Annual physical exam Osteopenia Vitamin B12 deficiency Hyperglycemia Hyperlipidemia History of mammogram CKD (chronic kidney disease), stage III Atrophic vaginitis Overweight HTN (hypertension) Surgical History H/O colonoscopy No pertinent past surgical history Family History Father No problems noted. Mother No problems noted. Social History Household Members Other:: , taking care of her ill , in wheelchair Housing: House Alcohol intake: current Alcohol intake frequency: a few times a week Patient Tobacco Use Status: Former Tobacco user e-Cigarette/Vaping Use: Never Used service: No Current occupational status: retired Cognitive needs: No Hearing needs: No Vision needs: No Questionnaire Thrive Questionnaire Date Thrive assessed: 11/23/24 I am a: Patient What is your living situation today?: I have a steady place to live Within the past 12 months, did the food you bought not last and you didn't have the money to get more?: Never true Within the past 12 months, did you worry whether your food would run out before you got money to buy more?: Never true Do you have trouble paying for medicines?: No Do you have trouble getting transportation to medical appointments?: No Do you have trouble paying your heating and electricity bill?: No Do you have trouble taking care of your child, family member or friend?: No Do you have trouble with day-to-day activities such as bathing, preparing meals, shopping, managing finances, etc.?: No Are you currently unemployed and looking for a job?: Yes Are you interested in more education?: No Please select the resources that you would like help with: None Currently or been in a relationship where the following occur: No concerns reported THRIVE Score: 0 MATTHEW-7 AMB Questionnaire MATTHEW-7 Date MATTHEW - 7 assessed: 12/26/24 Source: Developed by Drs. Jay Tristan, Janis Inman, Samm Hayes and colleagues, with an educational jadiel from [employer]. Review of Systems Const All systems reviewed & are unremarkable except as noted in HPI and below ENT Reports no additional complaints Card Reports no additional complaints Resp Reports no additional complaints GI Reports no additional complaints Reports no additional complaints Physical exam (Primary Care) Vital Signs: Last Vital Signs Temp 97.6 F 06/26/25 12:53 Pulse 65 06/26/25 12:53 Resp 19 06/26/25 12:53 BP 124/70 06/26/25 12:53 Pulse Ox 98 06/26/25 12:53 Oxygen Delivery Method Room Air 06/26/25 12:53 BMI result Body Mass Index 24.5 Tobacco/Smoking Status: Tobacco use Status Tobacco use date assessed 06/26/25 06/26/25 12:58 Patient Tobacco Use Status Former Tobacco user 06/26/25 12:58 e-Cigarette/Vaping Use Never Used 06/26/25 12:58 Thrive Assessment: Date of Thrive Assessment Date Thrive assessed 11/23/24 06/26/25 12:58 Currently or been in a relationship where the following occur: No concerns reported Const General: no acute distress HENMT Head: Yes normal to inspection Mouth: Normal oral and palatal mucosa present Eyes General: appearance normal, both eyes and all related structures Neck Neck: Yes supple Resp Effort & Inspection: normal respiratory effort Auscultation: clear to auscultation bilaterally Cardio Rhythm: regular rhythm Heart sounds: S1 normal heart sound present and S2 normal heart sound present GI Inspection: Yes normal to inspection Palpation (GI): Soft to palpation Coding Level of Care Code Est Pt Level 4 (82114) Diagnoses HTN (hypertension) I10 Vitamin B12 deficiency E53.8 CKD (chronic kidney disease), stage III N18.30 Anxiety F41.9 Assessment & Plan Assessment & Plan (1) HTN (hypertension): Code(s): I10 - Essential (primary) hypertension Category: Medical Plan: Continue current medications (2) Vitamin B12 deficiency: Comment: start oral Vit B12 12/02 , recheck in 3 mths Code(s): E53.8 - Deficiency of other specified B group vitamins Category: Medical Plan: Continue vitamin-b 12 supplement (3) CKD (chronic kidney disease), stage III: Code(s): N18.30 - Chronic kidney disease, stage 3 unspecified Category: Medical Plan: monitor renal function and sodium level in 1 and 2 months, continue fluid restriction, follow-up in November with a fasting labs before (4) Anxiety: Comment: Secondary to stress related to being caregiver to her ill Code(s): F41.9 - Anxiety disorder, unspecified Category: Medical Plan: Continue buspirone, counseling discussed with the patient Orders: Orders Complete Blood Count Auto Diff 5 Months E53.8 - Deficiency of other specified B group vitamins, E78.5 - Hyperlipidemia, unspecified, I10 - Essential (primary) hypertension, N18.30 - Chronic kidney disease, stage 3 unspecified TSH reflex Free T4 5 Months E53.8 - Deficiency of other specified B group vitamins, E78.5 - Hyperlipidemia, unspecified, I10 - Essential (primary) hyper tension, N18.30 - Chronic kidney disease, stage 3 unspecified Basic Metabolic Panel 1 Month E53.8 - Deficiency of other specified B group vitamins, E78.5 - Hyperlipidemia, unspecified, I10 - Essential (primary) hypertension, N18.30 - Chronic kidney disease, stage 3 unspecified Basic Metabolic Panel 2 Months E53.8 - Deficiency of other specified B group vitamins, E78.5 - Hyperlipidemia, unspecified, I10 - Essential (primary) hypertension, N18.30 - Chronic kidney disease, stage 3 unspecified Comprehensive [place]. Panel Fast 5 Months E53.8 - Deficiency of other specified B group vitamins, E78.5 - Hyperlipidemia, unspecified, I10 - Essential (primary) hypertension, N18.30 - Chronic kidney disease, stage 3 unspecified Vitamin B12 and Folate 5 Months E53.8 - Deficiency of other specified B group vitamins, E78.5 - Hyperlipidemia, unspecified, I10 - Essential (primary) hypertension, N18.30 - Chronic kidney disease, stage 3 unspecified
--- OUTSIDE RECORDS SUMMARY | 2025-06-26 16:47 | XMS_ITS | Patient Health Record ---
Author Organization [facility] Address [address] [place] [address] Care Team Providers Care Retention Manager Name Role Phone Vanesa Beasley MD Primary Care Provider Usha Gamboa Unavailable [phone] Allergies Allergen (clinical drug ingredient) Drug/Non Drug Allergy documented on EMR Reaction Allergy Type Onset Date Status citalopram Citalopram Hydrobromide Leg Cramps Drug Allergy Active Reason For Referral No Information Medications Medication SIG (Take, Route, Frequency, Duration) Notes Start Date End Date Status Estradiol Vaginal Cream 0.01% 1 Gram to the affected area Vaginal/Vulva Twice a week; Duration: 90 Days 01/11/2025 Active Clobetasol Propionate 0.05 % 1 application to affected area Externally ONCE A WEEK; Duration: 90 DAYS 01/11/2025 Active busPIRone HCl 15 MG 1 tablet Orally Once a day Active Vitamin B12 Active Peggy Seasonal Active Multivitamins 1 ORAL daily; Duration: -3 [facility] [place] Active Estradiol Vaginal Cream 0.01% 1 Gram to the affected area Vaginal/Vulva Twice a week; Duration: 90 Days 10/26/2022 Active Vitamin D3 Active Atenolol-Chlorthalidon e 50-25 MG TAKE 1 TABLET BY MOUTH EVERY DAY Oral; Duration: 90 Active Clobetasol Propionate 0.05 % APPLY TO AFFECTED AREA ONCE A WEEK TOPICALLY; Duration: 90 PLS ADVISE PAT TO APPLY TWICE A WEEK IF LESIONS HAVE WORSENED. THANK YOU. Active Aspirin EC 81MG 1 ORAL daily; Duration: -3 [facility] [place] Active Losartan Potassium 25 MG TAKE 1 TABLET BY MOUTH EVERY DAY Oral; Duration: 90 Active Albuterol Sulfate HFA 108 (90 Base) MCG/ACT INHALE 2 PUFFS BY MOUTH EVERY 6 HOURS NEEDED Inhalation; Duration: 16 Active Calcium ORAL; Duration: -3 [facility] 08/07/2011 Active Social History Tobacco Use: Social History Observation Description Date Details (start date - stop date) Never Smoker NA - NA Sexual History Question Answer Notes Had sex in the past 12 months (vaginal, oral, or anal)? Yes with Men only Prevention strategies discussed: Other AUDIT-C (Standard) Question Answer Notes Did you have a drink contain ing alcohol in the past year? Yes How often did you have a dri nk containing alcohol in the past year? Daily or almost daily (4 points) How many drinks did you have on a typical day when you were drinking in the past year? 1 or 2 drinks (0 point) How often did you have six o r more drinks on one occasion in the past year? Never (0 point) Points 4 Interpretation Positive Tobacco Control (Standard) Question Answer Notes Tobacco use: Nonsmoker Problems Problem Type SNOMED Code ICD Code Onset Dates Problem Status W/U Status Risk Notes Problem Screening for malignant neoplasm of breast (201226015) Encounter for other screening for malignant neoplasm of breast (Z12.39) Active confirmed Problem Postmenopausal atrophic vaginitis (35090848) Postmenopausal atrophic vaginitis (N95.2) Active confirmed Problem Cardiac arrhythmia (580254063) Other specified cardiac arrhythmias (I49.8) Active confirmed Problem Localized morphea (159389614) Lichen sclerosus et atrophicus (L90.0) Active confirmed Problem Atrophy of vulva (820247560) Atrophy of vulva (N90.5) Active confirmed Problem Hyperlipidemia (50863508) Other and unspecified hyperlipidemia (272.4) Active confirmed Major Problem Anxiety state (040119506) Anxiety state, unspecified (300.00) Active confirmed Major Problem Depressive disorder (95439283) Depressive disorder, not elsewhere classified (311) Active confirmed Major Problem Essential hypertension (35069350) Unspecified essential hypertension (401.9) Active confirmed Major Problem Menopausal symptom (85291223) Symptomatic menopausal or female climacteric states (627.2) Active confirmed Major Problem Postmenopausal atrophic vaginitis (31159340) Postmenopausal atrophic vaginitis (627.3) Active confirmed Diag Problem Gynecological examination normal (808263722121493) Routine gynecological examination (V72.31) Active confirmed Major Problem Screening for malignant neoplasm of colon (912370577) Special screening for malignant neoplasms, colon (V76.51) Active confirmed Major Vital Signs Temperature 97.7 degrees Fahrenheit 01/11/2025 Blood pressure diastolic 82 mm Hg 01/11/2025 Height 64 in 01/11/2025 Blood pressure systolic 160 mm Hg 01/11/2025 Weight 151 lbs 01/11/2025 BMI 25.92 kg/m2 01/11/2025 Encounters Encounter Location Date Provider Diagnosis [facility] [address] [place] [address] 01/11/2025 Usha Alexandra Encounter for gynecological examination (general) (routine) with abnormal findings Z01.411 ; Encounter for screening mammogram for malignant neoplasm of breast Z12.31 ; Other specified cardiac arrhythmias I49.8 ; Other specified disorders of bone density and structure, multiple sites M85.89 ; Postmenopausal atrophic vaginitis N95.2 and Lichen sclerosus et atrophicus L90.0 [facility] [address] [place] [address] 01/29/2025 Usha Alexandra Encounter for screening for osteoporosis Z13.820 and Other specified disorders of bone density and structure, multiple sites M85.89 Assessments Encounter Date Diagnosis (ICD Code) Assessment Notes Treatment Notes Treatment Clinical Notes Section Notes 01/11/2025 Encounter for gynecological examination (general) (routine) with abnormal findings (ICD-10 - Z01.411) NO MORE PAP TESTS. 01/29/2025 Encounter for screening for osteoporosis (ICD-10 - Z13.820) 01/11/2025 Encounter for screening mammogram for malignant neoplasm of breast (ICD-10 - Z12.31) REGULAR MAMMOGRAMS AND SBE'S WERE RECOMMENDED. 01/29/2025 Other specified disorders of bone density and structure, multiple sites (ICD-10 - M85.89) 01/11/2025 Other specified cardiac arrhythmias (ICD-10 - I49.8) DISCUSSED FINDINGS WITH PAT AND REASSURED HER THAT THIS IS OFTEN NOT A WORRISOME OBSERVATION BUT THAT HER PCP NEEDS TO BE MADE AWARE. SHE HAS AN APPT NEXT MONTH. 01/11/2025 Other specified disorders of bone density and structure, multiple sites (ICD-10 - M85.89) DISCUSSED HER LAST BMD RESULTS AND OSTEOPENIA AND ITS IMPACT ON HER HEALTH. ADEQUATE CALCIUM AND VIT D. WEIGHT BEARING EXERCISES. REPEAT BMD THIS YEAR. 01/11/2025 Postmenopausal atrophic vaginitis (ICD-10 - N95.2) CONTINUE ESTRADIOL CREAM TWICE WEEKLY. 01/11/2025 Lichen sclerosus et atrophicus (ICD-10 - L90.0) REASSURED PAT THAT LICHEN SCLEROSUS HAS RESOLVED. ENCOURAGED PAT TO CONTINUE ONCE WEEKLY APPLICATION OF CLOBETASOL TO PREVENT RECURRENCE. Plan Of Treatment Pending Test Test Name Order Date MAMMOGRAM, SCREENING 09/24/2021 MAMMOGRAM, SCREENING 12/14/2023 OCCULT BLOOD X 3 08/21/2016 BONE DENSITY 09/24/2021 BONE DENSITY 12/14/2023 BONE DENSITY 01/29/2025 MM Digital Mammo Screening 01/11/2025 MM Digital Mammo Screening 01/03/2021 MM Digital Mammo Screening 09/24/2021 MM Digital Mammo Screening 10/26/2022 MM Digital Mammo Screening 12/14/2023 Next Appt Details Provider Name:Usha pastor, 01/16/2026 01:00:00 PM, [address] [place] [address], [address], [place], [address], Insurance Providers Payer Name Payer Address Payer Phone Subscriber Number Group Number Insured Name Patient Relationship to Insured Coverage Start Date Coverage End Date MEDICARE [address] YONI CHAUHAN [id number] DANIEL OBREGON Self - patient is the insured BC OF [facility] [address] [place] [address] [id number] ANUSHA OBREGON Spouse - patient is the spouse of the insured Medical (General) History Medical History History ICD Code Postmenopausal atrophic vaginitis N95.2 Anxiety disorder, unspecified F41.9 Menopausal and female climacteric states N95.1 Major depressive disorder, single episod e, unspecified F32.9 Other hyperlipidemia E78.4 Essential (primary) hypertension I10 Lichen sclerosus et atrophicus L90.0 Atrophy of vulva N90.5 Other specified disorders of bone densit y and structure, multiple sites M85.89 Surgical History Surgery Date(Month/Year) Tonsillectomy Umbilical Hernia Colonoscopy Vulvar Biopsy - Lichen Sclerosus 07/11/19 Hospitalization History Reason Date(Month/Year) See Surgical Hx 2 Vaginal Deliveries
--- OUTSIDE RECORDS SUMMARY | 2025-06-26 16:47 | XMS_ITS | Clinical Summary ---
Author Organization [facility] Address [address] [address] Phone Care Team Providers Care Testing And Regulating Technician Name Role Phone Vanesa Beasley MD Primary Care Provider [phone] Allergies Active Allergy Reactions Criticality Noted Date [...] Care Team (Late st Contact Info) Description 07/11/2025 Orders Only [facility] [address] [address] Lucia Gtz ARNP [address] [address] Stage 3a chronic kidney disease (HCC); Hypertensive disorder 10/08/2025 1:15 PM EST Office Visit [facility] [address] [phone] Lucia Gtz, CARDIOVASCULAR TECHNICIAN [address] [phone] Health Maintenance Due Date Last Done Comments [...] age to complete this topic Insurance Medicare [facility] Member Subscriber Plan / Payer (Ef fective 2015-Present) Name:Korina Obregon Relation to Subscriber:Spouse Name:JOSUE OBREGON Date of :1899 (Home) Address: [address] [place] [address] Payer ID:[id number] (NAIC) Group ID:[id number] Type:Not on file Address: [address] [place] [address] Medicare [facility] Member Subscriber Plan / Payer (Ef fective 2015-Present) Name:Korina Obregon Relation to Subscriber:Spouse Name:JOSUE OBREGON Date of :1899 (Home) Address: [address] [place] [address] Payer ID:[id number] (NAIC) Group ID:[id number] Type:Not on file Address: [address] [place] [address] Care Teams Testing And Regulating Technician Relationship Specialty Start Date End Date Vanesa Beasley MD [address] [place] [address] PCP - General 10/21/20
== END 2025-06-26 15:57 | disposition home or self-care (01) ==
LOC: HO.HMCC 12:51
PROVIDERS: PCP Internal Medicine; Visit Provider Internal Medicine
DX: I10 Essential (primary) hypertension (principal); E53.8 Deficiency of other specified B group vitamins; N18.30 Chronic kidney disease, stage 3 unspecified; F41.9 Anxiety disorder, unspecified

== ENCOUNTER → 2025-06-26 12:50 | Outpatient (BNVA) | payer MEDICARE, BC, SELFPAY | PROVIDERS: PCP Internal Medicine; Visit Provider Internal Medicine | DX: I12.9 Hypertensive chronic kidney disease with stage 1 through stage 4 chronic kidney disease, or unspecified chronic kidney disease (principal); N18.30 Chronic kidney disease, stage 3 unspecified; F41.9 Anxiety disorder, unspecified; E53.8 Deficiency of other specified B group vitamins; Z99.3 Dependence on wheelchair; Z79.899 Other long term (current) drug therapy | CPT/HCPCS: 99212 ==